=== PATIENT | male | born 1980 | race Caucasian/White ===

== ENCOUNTER 2017-08-20 09:22 | Emergency (ER) | payer MEDICAID, SELFPAY ==
[2017-08-20 09:23] VITALS: BP 144/82; PULSE 101; RESP 14; TEMP 37.1; O2SAT 98; BMI 22.3
--- NOTE | 2017-08-20 09:41 | ED.VISSUMM ---
- ER Visit Summary Date of Service: 08/20/17 Chief Complaint: Right flank pain History of Present Illness: The patient is a 37 M who has right flank pain. Started 4 days ago. He does have a history of kidney stones. Last one being 6 months ago. He did notice some hematuria this morning which is why he came in today. He does not currently have a urologist, however he has had lithotripsy in the past. He has been trying naproxen at home without any relief. He denies fevers. Physical Examination: Vital signs reviewed. HEENT exam unremarkable. Heart is regular rate and rhythm without murmurs. Lungs are clear to auscultation. Abdomen is soft with right flank tenderness to palpation. Extremities reveal no edema. Skin exam normal. Neurologic exam normal. Test Results: Urinalysis reveals blood Emergency Department Course and Treatment: Patient received IV Toradol and some fluids. He feels much better Treatment Plan: Patient likely has another kidney stone. He has had many in the past and I do not feel imaging is necessary at this time as he looks very comfortable and has a history of kidney stones. This is likely again another kidney stone. He will be treated with [place] at home. He will be given urology follow-up Disposition: Discharge Impression: Hematuria, likely kidney stone This note was generated with [employer] dictation software. It may contain incorrect words, spelling, and punctuation that were not noted in review of the chart prior to signing ED Disposition - Plan for ED Patient: Chief Complaint: Flank Pain Referrals: Care Physician,No Primary [Primary Care Provider] -
[2017-08-20] MEDS: Ketorolac 30 MG/ML Syringe IV (09:56)
[2017-08-20 10:07] LABS: Bacteria 0 SEEN /hpf (None Seen); Mucous, Urine 0 SEEN /hpf (<or=2+); Squamous Epithelial Cells - UA 0 SEEN /hpf (0-5); White Blood Cells 0 SEEN /hpf (0-5)
[2017-08-20 10:09] LABS: Color, Urine Yellow (Yellow); Glucose, Dipstick Normal (Normal); Ketone-Dipstick Negative (Negative); Leukocyte Esterase-Dipstick 25 /ul (Negative); Nitrite-Dipstick Negative (Negative); Occult Blood-Urine 250 /ul (Negative); Protein-Dipstick Negative (Negative); Specific Gravity, Urine 1.005 (1.002-1.030); Urine Bilirubin Dipstick Negative (Negative); Urine Clarity Clear (Clear); Urine Urobilinogen Normal (Normal)
[2017-08-20 10:14] LABS: Red Blood Cells-Urine > 100 SEEN /hpf (0-5)
--- NOTE | 2017-08-20 10:38 | ED.DEP ---
ED Disposition - Plan for ED Patient: Disposition: Home or Assisted Living Chief Complaint: Flank Pain Instructions: ED Stone Renal W Colic Prescriptions: Hydrocodone Bitart/Apap 5-325 [[place] 5/325] 1 - 2 tab PO Q6H PRN PRN 3 Days #12 tab PRN Reason: Pain Referrals: Care Physician,No Primary [Primary Care Provider] -
[2017-08-20 10:49] VITALS: BP 110/95; PULSE 70; RESP 15; O2SAT 100
== END 2017-08-20 10:50 | disposition home or self-care (01) ==
PROVIDERS: Emergency Provider Emergency Medicine
DX: R10.9 Unspecified abdominal pain (principal); R31.9 Hematuria, unspecified; K58.9 Irritable bowel syndrome, unspecified; Z72.0 Tobacco use; Z79.899 Other long term (current) drug therapy; Z87.442 Personal history of urinary calculi
CPT/HCPCS: 81001; 96374; 99283; J7050

== ENCOUNTER 2017-09-20 14:09 | Emergency (ER) | payer OTHER, MEDICAID, SELFPAY ==
[2017-09-20 14:10] VITALS: BP 118/87; PULSE 90; RESP 16; TEMP 36.6; O2SAT 98; BMI 22.2
[2017-09-20 15:01] VITALS: BP 132/74; PULSE 71; RESP 16; O2SAT 98
--- NOTE | 2017-09-20 15:05 | RAD_ITS ---
STUDY: X-RAY - LEFT HAND REASON FOR EXAM: Male, 37 years old. Pain and swelling. TECHNIQUE: 3 view(s) of the hand. COMPARISON: None. FINDINGS: Normal radiocarpal articulation. Normal distal radioulnar joint. Normal visualized carpal bones. Normal carpal articulations Normal carpometacarpal articulation of the thumb. Normal second through fifth carpometacarpal joints. Normal metacarpi. Normal metacarpophalangeal joint of the thumb. Normal interphalangeal joint of the thumb. Normal proximal and distal phalanges of the thumb. Normal metacarpophalangeal joints of the second through fifth fingers. Normal proximal and distal interphalangeal joints of the second through fifth fingers. Normal phalanges of the second through fifth fingers. Soft tissue swelling. RAD/Hand Min 3 Views IMPRESSION: Soft tissue swelling. Electronically Signed: Ubaldo Thompson MD at 15:38 EST Tel [phone], Service support ,
--- NOTE | 2017-09-20 15:55 | ED.VISSUMM ---
- ER Visit Summary Date of Service: 09/20/17 Chief Complaint: Left hand pain History of Present Illness: The patient is a 37 M presenting with left hand pain. Patient states he was at work last night. He states he grabbed a clamp and twisted. He felt a sharp pain in the on the back part of his left hand. He is left-handed. He complains of persistent pain. He tried Aleve at home. Denies other complaints. Physical Examination: Vitals are stable. Patient is afebrile. Alert no acute distress. HEENT exam is unremarkable. Neck is supple. Lungs are clear and equal bilaterally. Heart is regular rate and rhythm. Extremities left dorsal hand tenderness. Active full range of motion. Normal cap refill Skin is warm and dry. No focal neurologic deficit. Remainder of exam is unremarkable. Emergency Department Course and Treatment: X-ray of the left hand shows no acute process. Patient is advised to ice and elevate. He is given the number for corporate care for follow-up. Advised to return to ED if worsening complaints. Disposition: Discharge home Impression: Left hand strain This note was generated with [employer] dictation software. It may contain incorrect words, spelling, and punctuation that were not noted in review of the chart prior to signing ED Disposition - Plan for ED Patient: Chief Complaint: Upper Extremity Injury Referrals: Care Physician,No Primary [Primary Care Provider] -
--- NOTE | 2017-09-20 15:58 | ED.DEP ---
ED Disposition - Plan for ED Patient: Chief Complaint: Upper Extremity Injury Instructions: ED Sprain Hand Referrals: Care Physician,No Primary [[facility] Care Provider[facility] - [facility] [GROUP OF PHYSICIANS] -
--- NOTE | 2017-09-20 15:59 | DCINST.ED_ITS ---
ED Disposition - Plan for ED Patient: Chief Complaint: Upper Extremity Injury Instructions: ED Sprain Hand Referrals: Care Physician,No Primary [[facility] Care Provider[facility] [GROUP OF PHYSICIANS] -
[2017-09-20 16:07] VITALS: BP 137/68; PULSE 59; RESP 15; O2SAT 100
== END 2017-09-20 16:08 | disposition home or self-care (01) ==
PROVIDERS: Emergency Provider Emergency Medicine
DX: S66.912A Strain of unspecified muscle, fascia and tendon at wrist and hand level, left hand, initial encounter (principal); X50.1XXA Overexertion from prolonged static or awkward postures, initial encounter; Y93.9 Activity, unspecified; Y92.9 Unspecified place or not applicable; Y99.9 Unspecified external cause status; Z72.0 Tobacco use; Z79.899 Other long term (current) drug therapy
CPT/HCPCS: 73130; 99283

== ENCOUNTER 2017-10-05 15:42 | Emergency (ER) | payer MEDICAID, SELFPAY ==
[2017-10-05 15:43] VITALS: BP 148/93; PULSE 97; RESP 16; TEMP 36.1; O2SAT 96; BMI 21.7
[2017-10-05 16:03] LABS: Bacteria 0 SEEN /hpf (None Seen); White Blood Cells 0 SEEN /hpf (0-5)
[2017-10-05 16:06] LABS: Color, Urine Yellow (Yellow); Glucose, Dipstick Normal (Normal); Ketone-Dipstick Negative (Negative); Leukocyte Esterase-Dipstick Negative /ul (Negative); Nitrite-Dipstick Negative (Negative); Occult Blood-Urine 250 /ul (Negative); Protein-Dipstick 15 mg/dl (Negative); Specific Gravity, Urine 1.025 (1.002-1.030); Urine Bilirubin Dipstick Negative (Negative); Urine Clarity Clear (Clear); Urine Urobilinogen 1 mg/dl (Normal)
[2017-10-05 16:20] LABS: Red Blood Cells-Urine 5-10 SEEN /hpf (0-5)
[2017-10-05 16:21] LABS: Mucous, Urine 1+ /hpf (<or=2+); Squamous Epithelial Cells - UA 0-5 SEEN /hpf (0-5)
--- NOTE | 2017-10-05 16:53 | CT_ITS ---
STUDY: CT ABDOMEN AND PELVIS WITHOUT CONTRAST REASON FOR EXAM: Male, 37 years old. Right flank pain for one month. RADIATION DOSAGE (If Supplied By Facility): CTDIvol = ( 6.04 ) mGy, DLP = ( 289.93 ) mGycm TECHNIQUE: Transaxial images were obtained from the dome of the diaphragm to the symphysis pubis without oral contrast, and without intravenous contrast. Sagittal and coronal images were reconstructed. Individualized dose optimization techniques were used for this CT. COMPARISON: CT abdomen and pelvis June 13, 2016. FINDINGS: The visualized lung bases are unremarkable. The visualized portions of the heart are within normal limits. Normal liver. The portal vein diameter is approximately 1.4 cm. Normal gallbladder and extrahepatic biliary system. Normal spleen. Normal pancreas. Normal bilateral adrenal glands. Normal right kidney. Nonobstructing 1 mm stones again seen in the lower pole of the left kidney. No hydronephrosis. Normal visualized stomach. Normal small intestine. Normal colon. The appendix is visualized and appears normal. Normal abdominal aorta. Normal inferior vena cava. Normal retroperitoneum. There are nonspecific bilateral inguinal lymph nodes. Normal urinary bladder. Normal visualized prostate gland. Normal abdominal wall. Normal osseous structures. CT/Abdomen/Pelvis without Cont IMPRESSION: 1. 1 mm nonobstructing stones in the lower pole of the left kidney. No hydronephrosis. 2. The bowel is unremarkable without signs of obstruction. The visualized appendix is normal. 3. No new mass or fluid collection. 4. The seminal vesicles remain borderline prominent, with the prostate gland itself is normal in size without overt finding of prostatitis. Electronically Signed: Amrit Shaver MD at 18:03 EDT , Service support ,
[2017-10-05] MEDS: Ketorolac 30 MG/ML Syringe IV (17:25)
[2017-10-05] MEDS: 0.9% Normal Saline 1,000 ML 150 ML IV (17:25)
[2017-10-05 17:30] LABS: Absolute Lymphocyte Count 4.48 X10^3/ul (0.83-4.51); Absolute Neutrophil Count 7.7 X10^3/uL (2.0-7.7); Basophil# 0.03 X10^3/uL; Basophil% 0.2 % (0-1); Eosinophil# 0.03 X10^3/uL; Eosinophils% 0.2 % (0-5); Hematocrit 44.6 % (40-54); Hemoglobin 15.2 g/dl (13.0-16.5); Lymphocyte # 4.48 X10^3/ul (4.0); Mean Corp Hgb Conc 34.1 g/gl (32-36); Mean Corpuscular Volume 88.1 fL (80-94); Mean Platelet Vol. 9.6 fl (6.2-12.0); Monocyte# 0.94 X10^3/uL; Monocyte% 7.1 % (0-10); Neutrophil # 7.67 X10^3/uL (2.7-7.7); Neutrophil % 58.2 % (47-70); Platelet Count 244 K/mm3 (150-450); RBC Distribution Width CV 12.8 % (11.6-14.6); RBC Distribution Width SD 40.6 fl (35.1-43.9); Red Blood Count 5.06 M/mm3 (4.6-6.2); White Blood Count 13.2 K/mm3 (4.4-11.0)
[2017-10-05 17:39] LABS: POSITIVE COUNT NO; POSITIVE DIFFERENTIAL NO; POSITIVE MORPHOLOGY NO
[2017-10-05 17:41] LABS: Anion Gap 6 (5-15); BUN 24 mg/dL (7-18); Calcium,Total 8.7 mg/dL (8.5-10.1); Chloride 104 mmol/L (98-107); EST Glomerular Filtration Rate 90 mL/min (>60); Est Glom Filt Rate - Afr Amer 109 mL/min (>60); Estimated Creatinine Clearance 88.45 ml/min; Glucose 87 mg/dL (74-106); Potassium 3.6 mmol/L (3.5-5.1); Sodium Level 137 mmol/L (136-145)
--- NOTE | 2017-10-05 18:16 | ED.VISSUMM ---
- ER Visit Summary Date of Service: 10/05/17 Chief Complaint: Right-sided flank pain [] History of Present Illness: The patient is a 37 M [presents to the emergency department with right-sided flank pain it has been going on for about a month. Patient states this pain has been more severe over the last 2-3 days. Patient currently rates his pain as an 8 out of 10. Patient is concerned because he thinks he might have a kidney stone at stuck. Patient has had kidney stones in the past that required extraction. Patient does describe some urinary frequency. Patient denies any blood in his urine. Patient denies fever. Patient denies diarrhea however he has had some intermittent nausea and vomiting.] Physical Examination: HEENT-PERRLA, EOMI. Cranial nerves II through XII grossly intact. TMs clear. Mucous membranes moist. No adenopathy. Cardiovascular-regular rate and rhythm without murmur or ectopy Lungs-clear to auscultation, chest wall stable without crepitus or subcu emphysema Abdomen-normoactive bowel sounds, soft, mild right lower quadrant tenderness, no rebound or rigidity, no peritoneal signs. Patient has some mild right CVA tenderness. Extremities-intact ?4, normal range of motion, normal pulses, atraumatic[] Test Results: [CBC with differential shows slightly elevated white count of 13.2, hemoglobin 15, hematocrit 45, platelets 244. Chemistries unremarkable. Urinalysis showed 5-[address] flank showed a normal appendix and a small 1 mm stone in the lower pole of the left kidney otherwise nothing acute.] Emergency Department Course and Treatment: [Patient was medicated with Toradol in the emergency department.] Treatment Plan: [Patient will be given a prescription for [place] for pain.] Disposition: [Discharged to home in stable condition. Patient advised to follow-up with Dr. pro hammond within next 5-7 days.] Impression: [Right flank pain-etiology uncertain] This note was generated with [employer] dictation software. It may contain incorrect words, spelling, and punctuation that were not noted in review of the chart prior to signing ED Disposition - Plan for ED Patient: Chief Complaint: Flank Pain Referrals: Care Physician,No Primary [Primary Care Provider] -
--- NOTE | 2017-10-05 18:19 | ED.DCSUM_ITS ---
- ER Visit Summary Date of Service: 10/05/17 Chief Complaint: Right-sided flank pain [] History of Present Illness: The patient is a 37 M [presents to the emergency department with right-sided flank pain it has been going on for about a month. Patient states this pain has been more severe over the last 2-3 days. Patient currently rates his pain as an 8 out of 10. Patient is concerned because he thinks he might have a kidney stone at stuck. Patient has had kidney stones in the past that required extraction. Patient does describe some urinary frequency. Patient denies any blood in his urine. Patient denies fever. Patient denies diarrhea however he has had some intermittent nausea and vomiting.] Physical Examination: HEENT-PERRLA, EOMI. Cranial nerves II through XII grossly intact. TMs clear. Mucous membranes moist. No adenopathy. Cardiovascular-regular rate and rhythm without murmur or ectopy Lungs-clear to auscultation, chest wall stable without crepitus or subcu emphysema Abdomen-normoactive bowel sounds, soft, mild right lower quadrant tenderness, no rebound or rigidity, no peritoneal signs. Patient has some mild right CVA tenderness. Extremities-intact ?4, normal range of motion, normal pulses, atraumatic[] Test Results: [CBC with differential shows slightly elevated white count of 13.2 , hemoglobin 15, hematocrit 45, platelets 244. Chemistries unremarkable. Urinalysis showed 5-[address] flank showed a normal appendix and a small 1 mm stone in the lower pole of the left kidney otherwise nothing acute.] Emergency Department Course and Treatment: [Patient was medicated with Toradol in the emergency department.] Treatment Plan: [Patient will be given a prescription for [place] for pain.] Disposition: [Discharged to home in stable condition. Patient advised to follow -up with Dr. pro hammond within next 5-7 days.] Impression: [Right flank pain-etiology uncertain] This note was generated with [employer] dictation software. It may contain incorrect words, spelling, and punctuation that were not noted in review of the chart prior to signing ED Disposition - Plan for ED Patient: Chief Complaint: Flank Pain Referrals: Care Physician,No Primary [Primary Care Provider] -
--- NOTE | 2017-10-05 18:20 | DCINST.ED_ITS ---
ED Disposition - Plan for ED Patient: Chief Complaint: Flank Pain Instructions: ED Flank Pain Uncertain Cause Prescriptions: Hydrocodone Bitart/Apap 5-325 [[place] 5/325] 1 - 2 tab PO Q4H PRN PRN 3 Days #12 tab PRN Reason: Pain Referrals: Care Physician,No Primary [Primary Care Provider] - Ignacio Benavides MD [STAFF PHYSICIAN] - 5-7 Days
[2017-10-05 18:28] VITALS: PULSE 76; RESP 16; O2SAT 97
== END 2017-10-05 18:29 | disposition home or self-care (01) ==
PROVIDERS: Emergency Provider Emergency Medicine
DX: R10.9 Unspecified abdominal pain (principal); Z87.442 Personal history of urinary calculi; R11.2 Nausea with vomiting, unspecified; Z72.0 Tobacco use; R35.0 Frequency of micturition
CPT/HCPCS: 74176; 80048; 81001; 85025; 96361; 96374; 99283; J7030; A4216

== ENCOUNTER 2017-11-11 14:30 | Outpatient (RCR) | payer MEDICAID, SELFPAY ==
--- NOTE | 2017-10-06 11:50 | HP.PTEVAL_ITS ---
Patient's Visit Information DONIS CEVALLOS Jr. is a 37 year old M referred to Physical Therapy by KENNY Smiley.CMORRI with a diagnosis of Neck, Shoulder, Elbow pain. 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 Sudden cramp in his left hand and locked up pain shot up through the wrist. went away- woke up the next day and he had little to no use of his left hand. [facility]- was started on Prednisone and Muscle Relaxers- is done with Prednisone and is only takes the muscle relaxers when he is not working. Has a hard time grasping a pen and cramping. Has been on light duty- does not use his left hand at all. He is left hand dominate. Keeps the left hand wrapped with bandages at work. The constant pain has down since the beginning but it still there. Night is the worst- sleeps on the couch in a more sitting up position and keep his head above his head. The hand is going to sleep a lot. The numbness is from the shoulder to the hand. Does not have any neck pain but does report that he pops his neck a few times a day- doesn't feel like his left side pops as good as the right. Was seeing a chiropractor about a year ago. Feels the pain starts in the hand and moves its way up to the shoulder. The thumb is not involved- 2 middle fingers are the worst. Feels like his hand swells when its at work Worst: 10/10 Agg: anything that has to do with gripping anything, pulling socks/shoes on, grasp and tug. Best: 0/10 Eases: Asprin just took the endge off. X-rays of the wrist/hand which were negative but no imagine of the shoulder or neck. Normally a pretty active person. Has noticed tension MELGAR in the posterior neck, no blurred vision, dizziness. Sleep: disturbed. PMHx: Diverticulitis, kidney stones, Pins in the left knee Meds: None - Objective Posture: FH, RS, Increased kyphosis- can correct with verbal cues but does not maintain. Gait: no deviation noted. 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 Elbow: WNL, Wrist: WNL, Hand: WNL. Sensation: patient reported diminished on the left. Palpation: patient was senstive to gross touch throughout UE on the left from the scapula, upper trap, bicpital groove down the arm to the wrist. Strength: Scap: fair minus, Core: fair minus Shoulder: Right: 5/5 throughout Left: Flexion/Abd: 4-/5 with pain, IR/ER: 4+/5 with pain, Add/Extn: 4/5 with pain with pain. Elbow: 4/5 with pain, Wrist: 4-/ 5 with pain (flex/ext/sup/pro/radial dev/ulnar dev. 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 Special Test: PA glides of the cervical spine: no increased s/s, compression of the cervical spine: increased pain in the shoulder, Distraction: no change in s/s - Goals Goal 1:: Patient will be I with HEP and progression Goal Time Frame: 4-6 Weeks Goal 2:: Patient will maintain proper posture t/o tx session to demo increased scap s/s Goal Time Frame: 4-6 Weeks Goal 3:: Patient will demo 4+/5 strength in left UE Goal Time Frame: 4-6 Weeks Goal 4:: Patient will report 0/10 pain for 1 week in the left UE Goal Time Frame: 4-6 Weeks - Rehabilitation Potential Physical Therapy Diagnosis: Patient presents with hypomobility- he has decreased strength and muscular endurance leading to abnormal posture and increased pain Rehabilitation Potential: Fair - Anticipated Interventions Patient/Client Instruction: Educate patient on: Benefits of Fitness Program For the Purpose of:: To increase tolerance to activity/condition/position Therapeutic Exercise to Include: Strength training, Endurance training, Coordination, Body mechanics, Postural training, Dynamic Lumbar Stabilization, Scapular Strength/Stabilization For the Purpose of:: To improve muscle performance and motor function TENS: Yes Cryotherapy (ice pack, ice massage): Yes Thermo therapy (hot pack): Yes Ultrasound (thermal/non thermal): Yes For the Purpose of:: To decrease pain Thank you for the opportunity to evaluate your patient. For Medicare and Medicare HMO plans, please review the plan of care and approve it. It will need to be FAXED BACK to us at [phone] for Medicare purposes. Please let me know if there are questions or concerns regarding this plan of care. Physician Signature: Date:
--- NOTE | 2017-11-11 14:56 | HP.PTDCSUM ---
HP - PT D/C Summary It has been my pleasure to treat DONIS CEVALLOS . under orders from KENNY Smiley, for the diagnosis of Neck, Shoulder, Elbow pain for a total of 12 visit(s). Discharge Date: Please see the following information for a summary of their discharge status. - Subjective Subjective: Patient reports feeling pretty good. Started working with his hand starting Wednesday- current restrictions no lifting/pushing/pulling over 10 lbs or repetitive with the left hand. 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 Still has a little bit of problem with the pinky ex: taking off lids. No pain in the arm or neck area. No N/T in the fingers even when he is sleeping. Sleep is not disturbed. Patient feels that he is 75% better. Goes back to the MD on the . Does equiptment at home that he has been using. - Pain left hand Pain Intensity (Out of 10): 0 - Objective Objective/Function: Posture: good throughout Gait: no deviation noted. ROM: Cervical WNL Shoulder:WNL. Elbow: WNL, Wrist: WNL, Hand: WNL. Sensation: WNL. Palpation: not tender. Strength: Scap: fair plus, Core: fair plus Shoulder: Right: 5/5 throughout Left: Flexion/Abd: 5/5, IR/ER: 5/5, Add/Extn: 5/5. Elbow: 5/5, Wrist: 5/5 (flex/ext/sup/pro/radial dev/ulnar dev). 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 - Goals Goal 1:: Patient will be I with HEP and progression Goal Progress: Goal Met Goal 2:: Patient will maintain proper posture t/o tx session to demo increased scap s/s Goal Progress: Goal Met Goal 3:: Patient will demo 4+/5 strength in left UE Goal Progress: Goal Met Goal 4:: Patient will report 0/10 pain for 1 week in the left UE Goal Progress: Goal Met - Plan Plan: Discharge to I HEP - D/C Information If there are questions or concerns regarding this patient's physical therapy, please feel free to call me at [phone]. Thank you for the referral of this patient. Sincerely, Leanne Herrera
== END 2017-11-11 16:12 | disposition home or self-care (01) ==
LOC: PT 14:30
PROVIDERS: Visit Provider Physician Assistant Surgical
DX: M77.12 Lateral epicondylitis, left elbow (principal); M54.12 Radiculopathy, cervical region; S16.1XXD Strain of muscle, fascia and tendon at neck level, subsequent encounter
CPT/HCPCS: 97014; 97110; 97162; 97164; G0283

== ENCOUNTER 2018-01-28 13:03 | Emergency (ER) | payer MEDICAID, SELFPAY ==
[2018-01-28 13:04] VITALS: BP 125/76; PULSE 74; RESP 16; TEMP 36.4; O2SAT 98; BMI 21.7
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
--- NOTE | 2018-01-28 13:42 | ED.DEP ---
ED Disposition - Plan for ED Patient: Disposition: Home or Assisted Living Chief Complaint: Chest Other Instructions: ED Strain Chest Wall Referrals: Zeb Baez MD [STAFF PHYSICIAN] - 1 Week if not improving Additional Instructions: Ice to chest wall to decrease pain and inflammation along with Motrin for pain. This should progressively get better if not improving evident further evaluated. At this time on your x-ray there are no signs of any broken ribs or other bony abnormalities.
[2018-01-28 13:46] VITALS: BP 118/75; PULSE 72; RESP 14; O2SAT 99
== END 2018-01-28 13:48 | disposition home or self-care (01) ==
LOC: ED 13:46
PROVIDERS: Emergency Provider Emergency Medicine
DX: S29.012A Strain of muscle and tendon of back wall of thorax, initial encounter (principal); S20.212A Contusion of left front wall of thorax, initial encounter; S80.212A Abrasion, left knee, initial encounter; S80.211A Abrasion, right knee, initial encounter; Y04.0XXA Assault by unarmed brawl or fight, initial encounter; Y93.9 Activity, unspecified; Y92.9 Unspecified place or not applicable; Y99.9 Unspecified external cause status; Z87.442 Personal history of urinary calculi; Z72.0 Tobacco use
CPT/HCPCS: 71046; 99283

== ENCOUNTER 2018-07-21 17:37 | Emergency (ER) | payer SELFPAY ==
[2018-07-21 17:37] VITALS: BMI 22.3
[2018-07-21 17:38] VITALS: BP 121/68; PULSE 65; RESP 16; TEMP 36.5; O2SAT 98; BMI 25.0
[2018-07-21 17:43] VITALS: BP 121/68; PULSE 65; RESP 16; TEMP 36.5; O2SAT 98
--- NOTE | 2018-07-21 17:57 | ED.VISSUMM ---
- ER Visit Summary Date of Service: 07/21/18 Chief Complaint: Dental pain History of Present Illness: The patient is a 37 M with right upper dental pain that has been getting worse since yesterday. Patient states he broke a tooth off 2 days ago. Patient admits to some subjective chills but denies any fevers. Patient admits to some swelling. Patient states he took an antibiotic that he had leftover from a prior infection and the swelling has improved. Patient admits to hot and cold sensitivity. Patient states he does have a dentist that he will follow-up with. Physical Examination: Vital signs are stable. Patient is afebrile. Patient is in no acute distress. Oral mucosa is pink and moist. Oropharynx is clear. There are multiple dental caries noted. There is tenderness over the right upper premolars and molars. There is some mild gingival edema. There is no definite abscess. Neck is supple. Trachea is midline. There is no JVD or lymphadenopathy noted. There is no sublingual edema noted. Heart was regular rate and rhythm. Lungs are clear and equal bilaterally. The remaining physical exam is within normal limits. Emergency Department Course and Treatment: Patient was given a prescription for Pen-Vee K. Patient was instructed to follow-up with his dentist as scheduled. Patient understood and was agreeable with the plan. All questions were answered. Disposition: Discharged home Impression: Infected dental caries This note was generated with [employer] dictation software. It may contain incorrect words, spelling, and punctuation that were not noted in review of the chart prior to signing ED Disposition - Plan for ED Patient: Disposition: Home or Assisted Living Chief Complaint: Dental Diagnosis: Infected dental caries Instructions: ED Tooth Pain, ED Cavity Dental Prescriptions: Penicillin V Potassium 500 mg PO 4X/DAY #40 tab Referrals: Care Physician,No Primary [Primary Care Provider] -
== END 2018-07-21 18:17 | disposition home or self-care (01) ==
LOC: ED 18:11
PROVIDERS: Emergency Provider Emergency Medicine
DX: K04.7 Periapical abscess without sinus (principal); K02.9 Dental caries, unspecified; R51 Headache; R11.0 Nausea; Z72.0 Tobacco use
CPT/HCPCS: 99282

== ENCOUNTER 2018-08-28 21:29 | Emergency (ER) | payer SELFPAY ==
[2018-08-28 21:35] VITALS: BP 122/89; PULSE 79; RESP 16; TEMP 36.7; O2SAT 100; BMI 24.2
--- NOTE | 2018-08-28 22:09 | CT_ITS ---
HISTORY: ABD PAIN TECHNIQUE: Helically acquired images were obtained of the abdomen and pelvis following 100 cc Isovue-300 IV contrast. No oral contrast was administered. A radiation dose optimization technique was used for this scan. COMPARISON: 10/05/17 CT abdomen and pelvis. FINDINGS: # of images incl. paperwork: 364 Mild wall thickening of the gastric antrum which is not well distended. Normal appendix. No obstruction or inflammation of the remainder of the bowel. No free fluid or free air. Liver, gallbladder, pancreas, spleen, adrenal glands, kidneys, urinary bladder with no acute or concerning findings. Punctate nonobstructing stone upper pole right kidney. Osseous structures and lung bases within normal limits. Patent mesenteric and portal veins. Normal caliber abdominal aorta. CT/Abdomen/Pelvis W IV Cont ONLY IMPRESSION: Mild wall thickening of the gastric antrum may be due to gastritis with underlying peptic ulcer disease not excluded. This might also be due to underdistention. No other etiology for abdominal pain identified. Individualized dose optimization techniques were used for this CT. at 0014 Reported and signed by: Avel Oakley MD Electronically Signed: Avel Oakley, at 0:13 EST Tel , Service support ,
[2018-08-28] MEDS: Ondansetron 4 MG/2 ML Vial IV (22:16)
[2018-08-28] MEDS: 0.9% Normal Saline 1,000 ML 1000 ML IV (22:16)
[2018-08-28] MEDS: Morphine 4 MG/ML Syringe IV (22:18)
[2018-08-28 22:20] LABS: Absolute Lymphocyte Count 3.56 X10^3/ul (0.83-4.51); Absolute Neutrophil Count 8.7 X10^3/uL (2.0-7.7); Basophil# 0.02 X10^3/uL; Basophil% 0.2 % (0-1); Eosinophil# 0.03 X10^3/uL; Eosinophils% 0.2 % (0-5); Hematocrit 47.7 % (40-54); Lymphocyte # 3.56 X10^3/ul (4.0); Lymphocyte % 27.3 % (19-41); Mean Corp Hgb Conc 33.5 g/gl (32-36); Mean Corpuscular Hgb 29.7 pg (27.0-32.0); Mean Corpuscular Volume 88.5 fL (80-94); Mean Platelet Vol. 10.4 fl (6.2-12.0); Monocyte% 5.4 % (0-10); Neutrophil # 8.71 X10^3/uL (2.7-7.7); Neutrophil % 66.7 % (47-70); POSITIVE COUNT NO; POSITIVE DIFFERENTIAL NO; POSITIVE MORPHOLOGY NO; Platelet Count 235 K/mm3 (150-450); RBC Distribution Width CV 12.8 % (11.6-14.6); RBC Distribution Width SD 40.7 fl (35.1-43.9); Red Blood Count 5.39 M/mm3 (4.6-6.2)
[2018-08-28 22:30] LABS: ALB/GLOB Ratio 1.1 RATIO (0.9-2.4); AST(SGOT) 20 U/L (15-37); Alanine Aminotransfer ALT/SGPT 25 U/L (16-61); Albumin, Serum 4.2 g/dL (3.2-5.0); Alkaline Phosphatase 95 U/L (45-117); Anion Gap 7 (5-15); BUN 8 mg/dL (7-18); BUN/Creat Ratio 8.4 RATIO (10-20); Calcium,Total 8.6 mg/dL (8.5-10.1); Chloride 105 mmol/L (98-107); Creatinine, Serum 0.95 mg/dL (0.70-1.30); EST Glomerular Filtration Rate 95 mL/min (>60); Est Glom Filt Rate - Afr Amer 115 mL/min (>60); Estimated Creatinine Clearance 96.07 ml/min; Globulin 3.7 g/dL (2.2-4.2); Glucose 58 mg/dL (74-106); Lipase 323 U/L (73-393); Potassium 3.5 mmol/L (3.5-5.1); Protein, Total 7.9 g/dL (6.4-8.2); Sodium Level 141 mmol/L (136-145)
[2018-08-28 22:31] VITALS: BP 110/79; PULSE 60; RESP 14; O2SAT 98
--- NOTE | 2018-08-28 22:50 | EKG12_ITS ---
Test Reason : CP Blood Pressure : / mmHG Vent. Rate : 065 BPM Atrial Rate : 065 BPM P-R Int : 144 ms QRS Dur : 082 ms QT Int : 396 ms P-R-T Axes : 060 047 057 degrees QTc Int : 411 ms Normal sinus rhythm Normal ECG Confirmed by ISABELLA CORCORAN, VIRGIL ([id number]), movie editor PAULINE LOVING ([id number]) on 09/02/2018 8:53:12 AM Referred By: DR ALCALA Confirmed By:VIRGIL MASON MD
[2018-08-28] MEDS: Dextrose 50%-Water 25 GM/50 ML DISP.SYRIN IV (23:41)
[2018-08-28 23:44] VITALS: BP 99/76; PULSE 56; RESP 14; O2SAT 97
[2018-08-29 00:16] VITALS: BP 107/74; PULSE 58; RESP 16; O2SAT 99
--- NOTE | 2018-08-29 00:25 | ED.VISSUMM ---
- ER Visit Summary Date of Service: 08/29/18 Chief Complaint: Abdominal pain History of Present Illness: The patient is a 38 M with epigastric abdominal pain that has been increasing over the past week. It is a stabbing pain and sometimes radiates to his chest. Associated with nausea and vomiting. Patient has a history of diverticulitis and ulcerative colitis. Denies any history of liver disease, pancreatitis, or peptic ulcer. Physical Examination: Afebrile and vital signs unremarkable. Alert and oriented. No acute distress. Heart regular rate and rhythm. Lungs clear. Abdomen is tender in the epigastric area. No guarding or rebound. Skin appears normal in color. No jaundice or pallor. Test Results: EKG showed sinus rhythm at a rate of 65. Troponin normal. CBC showed a white count of 13, glucose 58, hepatic panel and lipase normal. CT showed gastric thickening which may be concerning for peptic ulcer. Emergency Department Course and Treatment: Patient was treated with fluids, morphine, Zofran, and dextrose. Symptoms and exam were concerning for peptic ulcer. CT was also concerning. Otherwise his workup was fairly unremarkable. I have low suspicion for cardiac, aortic, or PE issues. No further testing or evaluation was indicated for these etiologies. Patient will need outpatient follow-up. He does not have a current GI doctor or surgeon. I will refer him to Dr. Goodwin who is on-call. He should call for follow-up tomorrow. He was given a prescription for a PPI. Continue his other medications. Return right away for any new or worsening issues. Treatment Plan: As above Disposition: Discharge Impression: 1. Peptic ulcer suspected This note was generated with [employer] dictation software. It may contain incorrect words, spelling, and punctuation that were not noted in review of the chart prior to signing ED Disposition - Plan for ED Patient: Referrals: Care Physician,No Primary [Primary Care Provider] -
--- NOTE | 2018-08-29 00:28 | ED.DCSUM_ITS ---
- ER Visit Summary Date of Service: 08/29/18 Chief Complaint: Abdominal pain History of Present Illness: The patient is a 38 M with epigastric abdominal pain that has been increasing over the past week. It is a stabbing pain and sometimes radiates to his chest. Associated with nausea and vomiting. Patient has a history of diverticulitis and ulcerative colitis. Denies any history of liver disease, pancreatitis, or peptic ulcer. Physical Examination: Afebrile and vital signs unremarkable. Alert and oriented. No acute distress. Heart regular rate and rhythm. Lungs clear. Abdomen is tender in the epigastric area. No guarding or rebound. Skin appears normal in color. No jaundice or pallor. Test Results: EKG showed sinus rhythm at a rate of 65. Troponin normal. CBC showed a white count of 13, glucose 58, hepatic panel and lipase normal. CT rod wed gastric thickening which may be concerning for peptic ulcer. Emergency Department Course and Treatment: Patient was treated with fluids, morphine, Zofran, and dextrose. Symptoms and exam were concerning for peptic ulcer. CT was also concerning. Otherwise his workup was fairly unremarkable. I have low suspicion for cardiac, aortic, or PE issues. No further testing or evaluation was indicated for these etiologies. Patient will need outpatient follow-up. He does not have a current GI doctor or surgeon. I will refer him to Dr. Goodwin who is on-call. He should call for follow-up tomorrow. He was given a prescription for a PPI. Continue his other medications. Return right away for any new or worsening issues. Treatment Plan: As above Disposition: Discharge Impression: 1. Peptic ulcer suspected This note was generated with [employer] dictation software. It may contain incorrect words, spelling, and punctuation that were not noted in review of the chart prior to signing ED Disposition - Plan for ED Patient: Referrals: Care Physician,No Primary [Primary Care Provider] -
--- NOTE | 2018-08-29 00:28 | ED.DEP ---
ED Disposition - Plan for ED Patient: Instructions: Peptic Ulcer Prescriptions: Omeprazole [Prilosec] 20 mg PO BID #60 cap Referrals: Norbert West MD [STAFF PHYSICIAN] -
--- NOTE | 2018-08-29 00:37 | ED.RN ---
SANDWICH, ORANGE JUICE, COOKIES AND PEANUT BUTTER GIVEN
[2018-08-29 00:41] LABS: Bedside Glucose 68 mg/dL (70-110)
[2018-08-29 01:11] LABS: Bedside Glucose 83 mg/dL (70-110)
[2018-08-29 01:22] VITALS: BP 119/84; PULSE 60; RESP 16; O2SAT 99
== END 2018-08-29 01:22 | disposition home or self-care (01) ==
PROVIDERS: Emergency Provider Emergency Medicine
DX: K27.9 Peptic ulcer, site unspecified, unspecified as acute or chronic, without hemorrhage or perforation (principal); R11.2 Nausea with vomiting, unspecified; K58.9 Irritable bowel syndrome, unspecified; Z72.0 Tobacco use; Z87.19 Personal history of other diseases of the digestive system; Z87.442 Personal history of urinary calculi
CPT/HCPCS: 74177; 80053; 82962; 83690; 84484; 85025; 93005; 96361; 96374; 96375; 99283; J7030; Q9967; A4216; J2405

== ENCOUNTER 2018-09-29 00:59 | Emergency (ER) | payer SELFPAY ==
[2018-09-29 01:03] VITALS: BP 111/70; PULSE 68; RESP 17; TEMP 36.6; O2SAT 96; BMI 23.3
--- NOTE | 2018-09-29 01:26 | RAD_ITS ---
STUDY: X-RAY CHEST REASON FOR EXAM: Male, 38 years old. Confusion TECHNIQUE: PA and lateral COMPARISON: January 28, 2018 FINDINGS: The lungs are clear and expanded. There is no demonstrated pleural abnormality. Normal size heart. Normal mediastinum and jimenez. Normal visualized pulmonary arteries. Normal visualized aortic arch and descending thoracic aorta. Normal visualized thoracic spine. Normal visualized ribs, clavicles, and shoulders. There is no demonstrated abnormality of the visualized soft tissue structures of the upper abdomen. RAD/Chest PA and Lateral IMPRESSION: Normal x-ray examination of the chest. Electronically Signed: Valentino Tellez MD at 3:25 EDT , Service support ,
--- NOTE | 2018-09-29 01:26 | EKG12_ITS ---
Test Reason : WEAKNESS/DIZZINESS Blood Pressure : / mmHG Vent. Rate : 057 BPM Atrial Rate : 057 BPM P-R Int : 162 ms QRS Dur : 084 ms QT Int : 430 ms P-R-T Axes : 058 063 040 degrees QTc Int : 418 ms Sinus bradycardia Otherwise normal ECG Confirmed by ISABELLA CORCORAN, VIRGIL ([id number]), content editor PAULINE LOVING ([id number]) on 09/30/2018 8:27:04 AM Referred By: ISAMAR Confirmed By:VIRGIL MASON MD
[2018-09-29 01:27] VITALS: BP 106/76; PULSE 64; RESP 14; O2SAT 95
[2018-09-29 01:28] VITALS: O2SAT 95
[2018-09-29 01:36] LABS: Absolute Lymphocyte Count 2.74 X10^3/ul (0.83-4.51); Absolute Neutrophil Count 4.9 X10^3/uL (2.0-7.7); Basophil# 0.03 X10^3/uL; Basophil% 0.4 % (0-1); Eosinophil# 0.13 X10^3/uL; Eosinophils% 1.5 % (0-5); Hematocrit 42.2 % (40-54); Hemoglobin 14.5 g/dl (13.0-16.5); Lymphocyte # 2.74 X10^3/ul (4.0); Lymphocyte % 32.4 % (19-41); Mean Corp Hgb Conc 34.4 g/gl (32-36); Mean Corpuscular Hgb 29.7 pg (27.0-32.0); Mean Corpuscular Volume 86.3 fL (80-94); Monocyte# 0.62 X10^3/uL; Monocyte% 7.3 % (0-10); Neutrophil # 4.92 X10^3/uL (2.7-7.7); Neutrophil % 58.3 % (47-70); Platelet Count 199 K/mm3 (150-450); RBC Distribution Width CV 12.9 % (11.6-14.6); RBC Distribution Width SD 40.3 fl (35.1-43.9); Red Blood Count 4.89 M/mm3 (4.6-6.2); White Blood Count 8.5 K/mm3 (4.4-11.0)
[2018-09-29 01:36] LABS: Bedside Glucose 115 mg/dL (70-110)
[2018-09-29 01:38] LABS: POSITIVE COUNT NO; POSITIVE DIFFERENTIAL NO; POSITIVE MORPHOLOGY NO
[2018-09-29 01:43] LABS: International Normalized Ratio 1.1; Prothrombin Time (Protime)PT. 14.1 SECONDS (11.7-14.9)
[2018-09-29 01:44] LABS: Partial Thromboplast Time 30.6 Seconds (24.1-36.2)
[2018-09-29 01:47] LABS: Anion Gap 5 (5-15); BUN 14 mg/dL (7-18); BUN/Creat Ratio 15.6 RATIO (10-20); Calcium,Total 8.3 mg/dL (8.5-10.1); Chloride 107 mmol/L (98-107); EST Glomerular Filtration Rate 101 mL/min (>60); Est Glom Filt Rate - Afr Amer 123 mL/min (>60); Estimated Creatinine Clearance 101.41 ml/min; Glucose 106 mg/dL (74-106); Potassium 3.7 mmol/L (3.5-5.1); Sodium Level 137 mmol/L (136-145)
[2018-09-29 03:00] VITALS: BP 107/72; PULSE 56; RESP 12; O2SAT 98
[2018-09-29 03:10] LABS: D-Dimer Quantitative (DVT/PE) 0.27 FEU/ug/m (0.27-0.49)
--- NOTE | 2018-09-29 03:34 | ED.VISSUMM ---
- ER Visit Summary Date of Service: 09/29/18 Chief Complaint: Dizziness History of Present Illness: The patient is a 38 M who presents with dizziness. It began today while at work. He also developed pain under his left armpit which was sharp. His dizziness is described as near syncope. No recent travel or surgery. No history of DVT or pulmonary embolism. He is not short of breath. No recent illness. No fevers cough congestion sore throat vomiting diarrhea. Physical Examination: Afebrile vitals normal Patient was sleeping comfortably when I entered the room. He was easily arousable. Heart regular rate and rhythm Lungs clear he does have a left-sided chest wall tenderness Abdomen soft Alert No rash Test Results: EKG shows sinus rhythm at a rate of 57. Two-view chest x-ray normal. CBC BMP INR normal. Troponin negative. D-dimer negative. Emergency Department Course and Treatment: Workup as above is normal. Patient's dizziness is significantly improved. His chest pain appears to be reproducible and is likely musculoskeletal in nature. He was given a referral to follow-up with her primary care physicians should symptoms not improved. He understands to return for new or worsening symptoms. He was discharged. Treatment Plan: [] Disposition: Discharge Impression: Chest pain This note was generated with [employer] dictation software. It may contain incorrect words, spelling, and punctuation that were not noted in review of the chart prior to signing ED Disposition - Plan for ED Patient: Referrals: Care Physician,No Primary [Primary Care Provider] -
--- NOTE | 2018-09-29 03:35 | ED.DEP ---
ED Disposition - Plan for ED Patient: Instructions: ED Dizziness UKO, ED Chest Pain Atypical Unkn Cause Referrals: Care Physician,No Primary [Primary Care Provider] - Brad Veras DO [NON CLINICAL AFFILIATE] -
[2018-09-29 03:42] VITALS: BP 100/82; PULSE 56; RESP 19; O2SAT 94
== END 2018-09-29 03:42 | disposition home or self-care (01) ==
PROVIDERS: Emergency Provider Emergency Medicine
DX: R07.9 Chest pain, unspecified (principal); R42 Dizziness and giddiness
CPT/HCPCS: 71046; 80048; 82962; 84484; 85025; 85379; 85610; 85730; 93005; 99284; J7030; A4216

== ENCOUNTER 2019-03-17 11:38 | Emergency (ER) | payer MEDICAID, SELFPAY ==
[2019-03-17 11:39] VITALS: BP 131/84; PULSE 83; RESP 17; TEMP 36.2; O2SAT 98; BMI 22.6
--- NOTE | 2019-03-17 11:57 | ED.DCSUM_ITS ---
- ER Visit Summary Date of Service: 03/17/19 Chief Complaint: Back pain History of Present Illness: The patient is a 38 M who has had back pain for the past 5 days. 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 It is in the middle part of his back and radiates upward and downward. Is worse with movement. He denies numbness or tingling in his arms or legs. No bowel or bladder incontinence. He tried Motrin at home without any relief. Physical Examination: Vital signs reviewed. Back exam reveals tenderness in the thoracic paraspinal regions. He does have a muscular tension not on the left- hand side. His neurologic exam including reflexes is normal Test Results: None performed Emergency Department Course and Treatment: Patient has no bony tenderness so I do not feel x-rays are necessary at this time. I will treat him with Norflex and Toradol. He will go home with naproxen and Flexeril. He will follow-up with his PCP Treatment Plan: [] Disposition: Discharge Impression: Thoracic strain This note was generated with [employer] dictation software. It may contain incorrect words, spelling, and punctuation that were not noted in review of the chart prior to signing ED Disposition - Plan for ED Patient: Referrals: Care Physician,No Primary [Primary Care Provider] -
--- NOTE | 2019-03-17 11:59 | ED.DEP ---
ED Disposition - Plan for ED Patient: Disposition: Home or Assisted Living Instructions: Back Sprain/Strain Prescriptions: cycloBENZAPRine HCl [Flexeril] 10 mg PO TID PRN #20 tab PRN Reason: Muscle Spasm Prescription Printed Naproxen [Naprosyn] 500 mg PO BID PRN #20 tab Prescription Printed Referrals: Care Physician,No Primary [Primary Care Provider] -
[2019-03-17] MEDS: Ketorolac 60 MG/2 ML Vial IM (12:00)
[2019-03-17] MEDS: Orphenadrine 60 MG/2 ML Ampul IM (12:00)
--- NOTE | 2019-03-17 12:10 | CM.ED ---
Social Work Consult: No PCP Informant: Self Referral Collaborating with Dr. Escobar. Dr. Escobar recommending for patient to follow up with PCP after ED visit. Dr. Escobar updated that patient does not have a current PCP. Met with patient in room. This social science teacher introduced self as well as social science teacher role. Patient agreeable to meeting with this social science teacher. 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 This social science teacher and patient able to engage in conversation about reason to have PCP to follow patient for continuity of care. Patient voicing understanding and open to this social science teacher providing patient with list of PCP's in the area. Patient is not open to this social science teacher setting up PCP appointment. Patient voicing no further needs. All questions answered. List of PCP's provided to patient, patient encouraged to contact a PCP to set up appointment. Med ZEPEDA, ELIZABETH
== END 2019-03-17 12:28 | disposition home or self-care (01) ==
PROVIDERS: Emergency Provider Emergency Medicine
DX: S29.012A Strain of muscle and tendon of back wall of thorax, initial encounter (principal); X50.0XXA Overexertion from strenuous movement or load, initial encounter; Y93.89 Activity, other specified; Y92.9 Unspecified place or not applicable; Y99.9 Unspecified external cause status; Z72.0 Tobacco use
CPT/HCPCS: 96372; 99282

== ENCOUNTER 2019-04-24 12:10 | Emergency (ER) | payer MEDICAID, SELFPAY ==
[2019-04-24 12:11] VITALS: BP 142/116; PULSE 125; RESP 17; TEMP 36.3; O2SAT 98; BMI 21.7
--- NOTE | 2019-04-24 12:43 | ED.VIS.GEN ---
History of Present Illness Chief Complaint: Back Informant: Patient Onset: Days Context: Gradual Onset Timing: Continuous Current Severity: Moderate Maximum Severity: Severe Narrative: Patient is a 38-year-old male with history of chronic neck and back pain resenting with worsening left neck and shoulder pain. Patient states is been worsening over the past 3 days but this is been ongoing for over a year. HAs previously seen a chiropractor. He was seen in the ER for a similar complaint about a month ago where he was prescribed Flexeril. Patient states he had a hard time finding some to follow-up with because he has care source. He notes that he does a lot of physical activity which worsens his symptoms. The pain is a sharpness and his neck and shoulder area. It does not radiate. He notes that the past 2 days he is also had tingling in his hand diffusely and some paresthesias over the palm of his hand diffusely. These seem to be worse when he moves his neck or shoulder. He denies any weakness of his hand. Patient had a prescription for Flexeril but states he did not take it very much because it made him sleepy. He was told to take Naprosyn was also stopped taking that because he ran out. He denies any new symptoms. He denies any other complaints at this time. 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 Past Medical History - Allergies and Home Meds Allergies/Adverse Reactions: Allergies cyproheptadine HCl [From Periactin] Adverse Reaction (Verified 04/24/19 12:10) Nausea Primary Care Physician: Care Physician,No Primary [Primary Care Provider] - Surgical History: noncontributory Lives: Spouse/ Significant Other Smoking Status: Current every day smoker Review of Systems All systems negative except as indicated Musculoskeletal: Reports: Neck pain, - - left shoulder pain Physical Exam Vital Signs/Narrative: Vital Signs Temp Pulse Resp BP Pulse Ox 04/24/19 12:11 97.3 F L 125 H 17 142/116 H 98 Inital Vital Signs reviewed: Yes General: Well nourished, Well developed, No Acute Distress Head: Normocephalic, Atraumatic Eyes: Perrl, EOMI ENT: Moist mucous membranes, No rhinorrhea, - - Dentition poor Neck: Supple, - - No range of motion, no midline tenderness, left paraspinal tenderness to palpation Cardiovascular: Regular rate, Regular rhythm, No murmurs Respiratory: No distress, CTA bilaterally, Chest nontender Abdomen: Soft, Nontender, Nondistended, Normal bowel sounds Back: Normal Inspection, - - Left cervical paraspinal tenderness to palpation, tenderness to palpation and spasm of the left trapezius. Negative for: Spinal tenderness Extremities: Nontender, No edema. Negative for: Tenderness Skin: Normal color, No rash Neurological: Alert, Oriented x3, Cranial nerves II-XII grossly intact, Normal Strength, Normal Sensation, - - Normal strength of the intrinsic muscles of the hand Psychological: Normal affect, Normal Mood Diagnostic/Tx/Re-eval - Medical Decision Making Patient is evaluated for neck pain. He is nontoxic in no acute distress. He has normal vital signs. He does not have midline tenderness. He has a normal neurologic exam. He does claim some subjective paresthesias but his sensation is intact light touch on the palm of his hand. I suspect patient is having muscle spasms of his trapezius which is causing his symptoms. Patient will be restarted on Flexeril and Naprosyn. He is given a dose of IM Toradol and Valium p.o. in the emergency room. He is counseled that he needs to follow-up with her primary care doctor. He is encouraged to follow-up with the chiropractor he is seen in the past as he felt that that helped before. Patient is also counseled that he needs to rest if he wants to heal out. He is encouraged to drink plenty of water. Patient is counseled on signs and symptoms requiring return to the emergency room. Patient verbalizes agreement and understand this plan. Patient discharged home in stable and improved condition. ED Disposition - Plan for ED Patient: Disposition: Home or Assisted Living Diagnosis: Trapezius muscle spasm Instructions: BACK SPASM, No Trauma, BACK AND NECK PAIN, General Prescriptions: cycloBENZAPRine HCl [Flexeril] 10 mg PO TID PRN #20 tab PRN Reason: Muscle Spasm Prescription Printed Naproxen [Naprosyn] 500 mg PO BID PRN #20 tab Prescription Printed Referrals: Care Physician,No Primary [Primary Care Provider] - Additional Instructions: Drink plenty of water. Follow-up with your chiropractor. Take medications as prescribed. You may attempt to cut the Flexeril in half if you feel that it is too strong to take a full 10 mg tablet. Allow yourself to rest to heal.
[2019-04-24] MEDS: Ketorolac 15 MG/ML Vial IM (13:09)
[2019-04-24] MEDS: diazePAM 5 MG Tablet PO (13:09)
[2019-04-24 13:15] VITALS: BP 112/94; PULSE 81; RESP 16; O2SAT 100
== END 2019-04-24 13:36 | disposition home or self-care (01) ==
PROVIDERS: Emergency Provider Emergency Medicine
DX: M62.830 Muscle spasm of back (principal); M54.2 Cervicalgia; M54.9 Dorsalgia, unspecified; R20.2 Paresthesia of skin; F17.200 Nicotine dependence, unspecified, uncomplicated
CPT/HCPCS: 96372; 99283

== ENCOUNTER 2019-05-28 09:35 | Emergency (ER) | payer MEDICAID, SELFPAY ==
[2019-05-28 09:35] VITALS: BP 121/80; PULSE 104; RESP 16; TEMP 36.9; O2SAT 97; BMI 21.7
--- NOTE | 2019-05-28 09:52 | ED.DCSUM_ITS ---
- ER Visit Summary Date of Service: 05/28/19 Chief Complaint: Itching History of Present Illness: The patient is a 38 M Who states that something crawled up his pants last night and bit him and he is now itching diffusely. He states that he was at family members house who put some new pet powder down on the carpeting. He also notes that they have new carpeting and pains. His dogs are currently being treated for fleas. He is used that medication before. 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 Patient denies any difficulty breathing or swallowing or voice changes Physical Examination: Afebrile vital signs are stable Gen: Well-nourished well-developed Head: Normocephalic atraumatic Eyes: Perrl EOMI ENT: TMs clear no rhinorrhea moist mucous membranes Neck: Supple no lymphadenopathy no JVD nontender CVS: Regular rate rhythm no murmurs normal S1-S2 Respiratory: No distress clear to auscultation bilaterally chest nontender Abdomen: Soft nontender nondistended normal bowel sounds no masses Back: Nontender Extremity: Nontender no edema Skin: Normal color she has significant urticaria of the bilateral hips and thighs. There is also urticaria noted on the arms back posterior auricular area. Neuro: alert orientated ?3 CN II-XII intact normal strength sensation reflexes gait cerebellar Psych: Normal affect normal mood Emergency Department Course and Treatment: Patient will be treated with Benadryl Pepcid and prednisone. This will be continued at home. He is to keep a list of all things he comes in contact with that can potentially new. I have asked that he follow-up with primary care. Impression: 1. Urticaria This note was generated with [employer] dictation software. It may contain incorrect words, spelling, and punctuation that were not noted in review of the chart pr ior to signing ED Disposition - Plan for ED Patient: Disposition: Home or Assisted Living Instructions: Understanding Urticaria (Hives) Prescriptions: DiphenhydrAMINE [Benadryl] 25 mg PO 4X/DAY PRN PRN #20 cap PRN Reason: Itching Prescription Printed Prednisone [Deltasone] 60 mg PO DAILY #12 tab Prescription Printed Famotidine [Pepcid] 20 mg PO BID #6 tab Prescription Printed Referrals: Isis Mcmahon MD [STAFF PHYSICIAN] - 3-5 Days if not improving
[2019-05-28] MEDS: Famotidine 20 MG Tablet 40 MG PO (10:04)
[2019-05-28] MEDS: predniSONE 20 MG Tablet 60 MG PO (10:04)
[2019-05-28] MEDS: DiphenhydrAMINE 25 MG Capsule 50 MG PO (10:04)
== END 2019-05-28 10:25 | disposition home or self-care (01) ==
PROVIDERS: Emergency Provider Emergency Medicine
DX: L50.9 Urticaria, unspecified (principal); Z72.0 Tobacco use
CPT/HCPCS: 99283

== ENCOUNTER 2021-04-24 11:52 | Emergency (ER) | payer MEDICAID, SELFPAY ==
[2021-04-24 11:53] VITALS: BP 122/81; PULSE 87; RESP 16; TEMP 36.9; O2SAT 96; BMI 21.7
[2021-04-24] MEDS: Naproxen 250 MG Tablet 500 MG PO (12:42)
[2021-04-24] MEDS: Clindamycin HCl 150 MG Capsule 300 MG PO (12:42)
[2021-04-24] MEDS: HYDROcodone Bitartrate/Apap 5/325 Tablet PO (12:42)
--- NOTE | 2021-04-24 13:06 | ED.VIS.DENTA ---
HPI History of Present Illness Chief Complaint: Dental Informant: patient Onset/Context/Timing Onset: Days Context: Sudden Onset Timing: Continuous Quality: Pain Location: Upper bicuspid/molars Maximum Severity: Severe Worsened by: Cold Relieved by: - (Nothing) Associated Symptoms Assocated Symptom - Dental: face swelling and cold sensitivity; Negative for fever, jaw swelling or hot sensitivity Narrative Narrative: Patient present because of dental pain. He has poor dentition. He denies fever, chills night sweats. Eyes rheumatic fever, heart murmur mitral valve prolapse. Patient denies skin lesions. He denies antibiotic allergies. Does have a prescription card. Prior similar symptoms: Yes Recent Illness/Hospitalization: No PFSH PFSH Medical History (Updated 04/24/21 @ 13:[address] Obdulio Quinonez MD) Back pain Diarrhea Fatigue Limb weakness Severe headache Home Medications clindamycin HCl [Cleocin HCl] 300 mg PO Q6H #28 capsule 04/24/21 [Rx Last Taken Unknown] hydrocodone-acetaminophen 1 tab PO Q6H PRN PRN 3 Days #10 tablet 04/24/21 [Rx Last Taken Unknown] naproxen 500 mg PO BID #14 tab 04/24/21 [Rx Last Taken Unknown] Allergy/AdvReac Type Severity Reaction Status Date / Time cyproheptadine HCl AdvReac Nausea Verified 04/24/21 11:55 [From Periactin] Surgical History Kidney stones Social History (Updated 04/24/21 @ 13:[address] Obdulio Quinonez MD) household members: spouse Smoking Status: Current every day smoker tobacco type: cigarettes alcohol intake: current alcohol intake frequency: holidays/special occasions only Alcohol type: hard liquor ROS ROS ED Constitutional Constitutional ED: Denies chills, fever(s), subjective, sweats or weight loss Eyes Eyes: Denies blurry vision or change in vision ENT ENT ED: Denies ear pain, rhinorrhea or sore throat Cardiovascular Cardiovascular: Denies chest pain or palpitations Respiratory/Chest Respiratory/Chest: Denies cough, dyspnea or dyspnea on exertion Gastrointestinal Gastrointestinal: Denies nausea or vomiting Hematologic/Lymphatic Hematologic/Lymphatic: Denies easy bleeding or easy bruising Allergic/Immunologic Allergic/Immunologic ED: Reports other Details: Patient with swelling on the right ; Denies mouth swelling, tongue swelling or urticaria EXAM Physical Exam Const Vital Signs: 04/24/21 11:53 Temperature 98.4 F Temperature Source Temporal Pulse Rate 87 Respiratory Rate 16 Blood Pressure 122/81 H Blood Pressure Mean 94 Pulse Ox 96 Oxygen Delivery Method Room Air Positive well nourished and well developed General Appearance ED: well developed; Negative for NAD HEENT Reports TM's clear tenderness Tympanic Membrane ED: Yes TM's clear Mouth ED: Yes oral and palatal mucosa normal, Yes lips normal, Yes tongue normal, Yes salivary gland normal, No mouth trauma, No oral and palatal mucosa abnormal and No salivary gland abnormal Mouth: oral and palatal mucosa normal, lips normal, tongue normal, salivary gland normal, No mouth trauma, No oral and palatal mucosa abnormal and No salivary gland abnormal Teeth and Gingiva: abnormal tooth and associated gingiva, caries, gingiva abnormal, poor dentition and teeth discoloration Throat: posterior oropharynx normal Eyes PERRL and EOMs intact bilaterally General Eye ED: Negative for pale conjunctiva or scleral icterus Neck no lymphadenopathy, supple and no JVD Neck Narrative: Trachea is midline. There is no inspiratory expiratory stridor. General: normal visual inspection Lymph Lymphatic: no lymphadenopathy noted Chest Wall inspection of chest normal Resp normal respiratory effort and clear to auscultation bilaterally Cardio regular rate, regular rhythm, S1 normal heart sound, S2 normal heart sound and no murmurs Neuro oriented x3 and CN's II-XII intact bilaterally Sensorium / Orientation: alert Psych mental status grossly normal Skin no rashes or lesions noted and No no wounds MDM MDM MDM Narrative Medical decision making narrative: Patient has reversible pulpitis with numerous dental caries and dental abscess. He was treated with clindamycin, NSAID and opiate allergies as it has no contraindication. Discharge Plan Triage Chief Complaint: Dental ED Provider: Obdulio Quinonez Dx/Rx/DC Orders Clinical Impression: Abscess, dental, Symptomatic reversible pulpitis, Dental caries into pulp Instructions: ED Dental Abscess Prescriptions: New clindamycin HCl [Cleocin HCl] 300 MG capsule 300 mg PO Q6H Qty: 28 RF: 0 hydrocodone-acetaminophen [hydrocodone-acetaminophen] 1 TABLET tablet 1 tab PO Q6H PRN PRN (Reason: Pain) 3 Days Qty: 10 RF: 0 naproxen 500 MG tablet 500 mg PO BID Qty: 14 RF: 0 Primary Care Provider: Care Physician,No Primary Referrals: Care Physician,No Primary [Primary Care Provider] -
[2021-04-24 13:28] VITALS: BP 134/77; PULSE 62; RESP 15; O2SAT 98
== END 2021-04-24 13:29 | disposition home or self-care (01) ==
LOC: ED 12:35
PROVIDERS: Emergency Provider Emergency Medicine
DX: K04.7 Periapical abscess without sinus (principal); K04.01 Reversible pulpitis; K02.9 Dental caries, unspecified; Z79.1 Long term (current) use of non-steroidal anti-inflammatories (NSAID); F17.210 Nicotine dependence, cigarettes, uncomplicated
CPT/HCPCS: 99283

== ENCOUNTER 2022-02-05 12:24 | Emergency (ER) | payer MEDICAID, SELFPAY ==
[2022-02-05 12:24] VITALS: BP 134/89; PULSE 98; RESP 18; TEMP 36.6; O2SAT 98; BMI 21.7
--- NOTE | 2022-02-05 12:35 | EX.ED.DYSGE1 ---
HPI History of Present Illness Chief Complaint: Shortness of Breath Narrative Narrative: Patient presenting with right rib pain since yesterday. Patient states that Wednesday he felt like he was coming down with something. He had a little bit of rhinorrhea and a little bit of a cough. He did not have fever, chills, body aches. He states he took Tylenol and ibuprofen over the weekend. He went back to work on Wednesday. Today he is present pain. He states is worse with movement and when he takes a deep breath. Its in the right ribs laterally and posteriorly. He denies chest pressure. He is not short of breath. No cardiac history. No history of DVT/PE. No risk factors for DVT/PE. 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 [facility] Medical History (Updated 05/02/21 @ 00:00 by María Velazquez) Back pain Diarrhea Fatigue Limb weakness Severe headache Home Medications clindamycin HCl 300 mg capsule (Cleocin HCl) 300 mg PO Q6H #28 CAPSULES 04/24/21 [Rx Last Taken Unknown] hydrocodone-acetaminophen 5-325mg 5mg-325mg 1 tab PO Q6H PRN PRN Pain 3 days #10 TABLETS 04/24/21 [Rx Last Taken Unknown] naproxen 500 mg tablet 500 mg PO BID #14 tabs 04/24/21 [Rx Last Taken Unknown] lidocaine 5 % topical patch (Lidoderm) 1 patch topical DAILY PRN muscle spasm #15 ea 02/05/22 [Rx Last Taken Unknown] naproxen 500 mg tablet (Naprosyn) 500 mg PO BID PRN pain #20 tabs 02/05/22 [Rx Last Taken Unknown] tizanidine 4 mg capsule (Zanaflex) 4 mg PO Q8H PRN muscle spasticity #20 caps 02/05/22 [Rx Last Taken Unknown] Allergy/AdvReac Type Severity Reaction Status Date / Time cyproheptadine HCl AdvReac Nausea Verified 02/05/22 12:26 [From Periactin] Surgical History Kidney stones Social History (Updated 04/24/21 @ 13:[address] Obdulio Quinonez MD) household members: spouse Smoking Status: Current every day smoker tobacco type: cigarettes alcohol intake: current alcohol intake frequency: holidays/special occasions only Alcohol type: hard liquor ROS ROS ED Constitutional Constitutional ED: Denies chills, fever(s) or sweats Eyes Eyes: Denies blurry vision or change in vision ENT ENT ED: Denies ear pain or sore throat Cardiovascular Cardiovascular: Reports other Details: Right rib pain ; Denies chest pain, palpitations or racing heartbeat Respiratory/Chest Respiratory/Chest: Reports cough; Denies dyspnea or sputum Gastrointestinal Gastrointestinal: Denies abdominal pain, constipation, diarrhea, nausea or vomiting Genitourinary Genitourinary ED: Denies dysuria, hematuria or urinary frequency Musculoskeletal Musculoskeletal: Denies arthralgias, myalgias or neck pain Integumentary Denies abscess, Abrasions or rash Neurologic Neurologic: Denies headache(s), paresthesias or weakness Psychiatric Psychiatric: Denies anxiety, depression, suicidal ideation or suicidal thoughts Endocrine Endocrinology: Denies polydipsia or polyuria EXAM Physical Exam Const Vital Signs: 02/05/22 12:24 02/05/22 12:48 Temperature 98 F Temperature Source Temporal Pulse Rate 98 Respiratory Rate 18 Respiratory Effort Normal Non-Labored Respiratory Depth Normal Respiratory Pattern Normal Blood Pressure 134/89 H Blood Pressure Mean 104 Pulse Ox 98 Oxygen Delivery Method Room Air Room Air Positive well nourished General Appearance ED: Negative for pallor HEENT Reports moist mucous membranes Eyes PERRL and EOMs intact bilaterally Chest Wall Chest Narrative: Tenderness to palpation of the right ribs diffusely in the mid axillary line in the posterior axillary line. There is no crepitance, deformity. Patient has equal symmetric breath sounds or chest wall rise. Resp normal respiratory effort GI normal to inspection, nondistended, normoactive bowel sounds Neuro oriented x3 and CN's II-XII intact bilaterally Sensorium / Orientation: alert Motor Exam: strength 5/5 throughout Skin no rashes or lesions noted General Skin Exam: Negative for jaundice or pallor MDM MDM MDM Narrative Medical decision making narrative: Patient presenting with right rib pain. This started after coughing episodes over the weekend when the patient felt generally unwell. He had no fever, chills. On examination he is tender in the right ribs in the posterior axial line and in the midaxillary line. There is no crepitance. He has equal symmetric breath sounds and chest wall rise. He does state that he is now having some tenderness in right upper chest wall in the pectoralis region. This is all reproducible and worse with motion. I do not believe this is cardiac in nature. Patient also has no risk factors for DVT or PE and is PERC negative. I obtained a right rib series and on my interpretation it shows no acute fractures of the ribs and the lung is well-expanded without any cardiopulmonary abnormalities. Patient was initially treated with [place] and a Lidoderm patch which he states helped. I think at this point he can be discharged home with muscle relaxers and Naprosyn. He was given Lidoderm patches as well. He was offered a work note but declines. He was given primary care follow-up. Return precautions discussed. Impression: 1. Chest wall strain Lab Data Attestation: I reviewed the patient's lab results. Radiography Diagnostic Testing: Clinical Impression(s) from Imaging Studies Ribs w/Chest X-Ray 02/05/22 12:50 IMPRESSION: RIBS: Normal x-ray examination of the ribs. CHEST: Normal x-ray examination of the chest. Electronically Signed: Ubaldo Thompson MD at 13:26 EDT , Discharge Plan Triage Chief Complaint: Shortness of Breath ED Provider: Chin Adamson Dx/Rx/DC Orders Instructions: ED Muscle Spasm Prescriptions: New naproxen [Naprosyn] 500 mg tablet 500 mg PO BID PRN (Reason: pain) Qty: 20 0RF tizanidine [Zanaflex] 4 mg capsule 4 mg PO Q8H PRN (Reason: muscle spasticity) Qty: 20 0RF lidocaine [Lidoderm] 5 % adhesive patch,medicated 1 patch topical DAILY PRN (Reason: muscle spasm) Qty: 15 0RF Rx Instructions: leave on most painful area for up to 12 hrs No Action clindamycin HCl [Cleocin HCl] 300 MG capsule 300 mg PO Q6H Qty: 28 0RF hydrocodone-acetaminophen [hydrocodone-acetaminophen] 1 TABLET tablet 1 tab PO Q6H PRN PRN (Reason: Pain) 3 Days Qty: 10 0RF naproxen 500 MG tablet 500 mg PO BID Qty: 14 0RF Primary Care Provider: Care PhysicianJennifer Primary Referrals: Lyssa Viramontes MD [STAFF PHYSICIAN] - 3-5 Days Care Physician,No Primary [Primary Care Provider] - Disposition Disposition: Home, Self Care
[2022-02-05] MEDS: HYDROcodone Bitartrate/Apap 5/325 Tablet PO (12:44)
[2022-02-05] MEDS: Lidocaine 5% Patch 1 PATCH TOPICAL (12:47)
[2022-02-05 12:48] VITALS: O2SAT 97
--- NOTE | 2022-02-05 12:50 | RAD_ITS ---
STUDY: X-RAY - UNILATERAL RIBS ( RIGHT ) WITH CHEST REASON FOR EXAM: Male, 41 years old. Right-sided chest pain with deep inspiration. TECHNIQUE - RIBS: 4 view(s) of the ribs. TECHNIQUE - CHEST: Single PA view of the chest. COMPARISON: Comparison is made with prior chest radiograph dated 09/29/2018. FINDINGS - RIBS: Normal visualized ribs without a demonstrated fracture. FINDINGS - CHEST: EKG electrodes are seen. The lungs are clear and expanded. There is no demonstrated pleural abnormality. Normal size heart. Normal mediastinum and jimenez. Normal visualized pulmonary arteries. Normal visualized aortic arch and descending thoracic aorta. Normal visualized thoracic spine. Normal visualized ribs, clavicles, and shoulders. There is no demonstrated abnormality of the visualized soft tissue structures of the upper abdomen. RAD/Ribs Uni Min 3V w/PA Chest IMPRESSION: RIBS: Normal x-ray examination of the ribs. CHEST: Normal x-ray examination of the chest. Electronically Signed: Ubaldo Thompson MD at 13:26 EDT ,
== END 2022-02-05 13:47 | disposition home or self-care (01) ==
PROVIDERS: Emergency Provider Student in an Organized Health Care Education/Training Program; Visit Provider Student in an Organized Health Care Education/Training Program
DX: S29.011A Strain of muscle and tendon of front wall of thorax, initial encounter (principal); X58.XXXA Exposure to other specified factors, initial encounter; R06.02 Shortness of breath; J34.89 Other specified disorders of nose and nasal sinuses; F17.210 Nicotine dependence, cigarettes, uncomplicated; Z79.1 Long term (current) use of non-steroidal anti-inflammatories (NSAID)
CPT/HCPCS: 71101; 99283

== ENCOUNTER 2022-03-21 14:16 | Emergency (ER) | payer MEDICAID, SELFPAY ==
[2022-03-21 14:17] VITALS: BP 120/86; PULSE 97; RESP 16; TEMP 36.9; O2SAT 96; BMI 20.5
--- NOTE | 2022-03-21 14:57 | CT_ITS ---
STUDY: CT ABDOMEN AND PELVIS WITHOUT CONTRAST REASON FOR EXAM: Male, 41 years old. Kidney Stone PT ARRIVES TO ED WITH PAINFUL, FOUL SMELLING URINE. HX OF KIDNEY STONES. RADIATION DOSAGE (If Supplied By Facility): CTDIvol = ( 6.04 ) mGy, DLP = ( 297.48 ) mGycm TECHNIQUE: Transaxial images were obtained from the dome of the diaphragm to the symphysis pubis without oral contrast, and without intravenous contrast. Sagittal and coronal images were reconstructed. Individualized dose optimization techniques were used for this CT. COMPARISON: CT of abdomen and pelvis dated June 13, 2016 FINDINGS: The visualized lung bases are unremarkable. The visualized portions of the heart are within normal limits. Normal liver. Normal gallbladder and extrahepatic biliary system. Normal spleen. Normal pancreas. Normal bilateral adrenal glands. A 1 mm calyceal stone is present in upper pole of the right kidney. 2 additional punctate stones are seen in the lower pole of the left kidney, refer to image 73/178 series 2. No hydronephrosis or hydroureter ureter is present. No perinephric stranding or abnormal appearance of the renal parenchyma or calyces is seen to suggest pyelonephritis. Normal visualized stomach. Normal small intestine. Normal colon. The appendix is visualized and appears normal. There is diffuse atherosclerotic calcification of the abdominal aorta, without a demonstrated aneurysm. Normal inferior vena cava. Normal retroperitoneum. Normal urinary bladder. Normal visualized prostate gland. A tiny calcification is present in the central aspect of the prostate gland. Normal abdominal wall. Normal osseous structures. CT/Abdomen/Pelvis without Cont IMPRESSION: 1. Small bilateral nonobstructing kidney stones Electronically Signed: Rob Lundy MD at 15:38 EDT ,
--- NOTE | 2022-03-21 15:02 | EDS_ITS ---
HPI History of Present Illness Chief Complaint: Flank Pain Detail of Chief Complaint: Initially flank pain now complains of colicky suprapubic discomfort and caleb Informant: patient Onset/Context/Timing Onset: Days Context: Sudden Onset Timing: Continuous and Waxes and wanes Quality: Colicky and see HPI narrative Location: Presently suprapubic and testicle Current Severity: Mild Maximum Severity: Severe Worsened by: Urination Relieved by: Nothing Associated Symptoms Associated Symptoms: Nausea, hematuria, urgency Narrative Narrative: Patient is a 41-year-old male with 5 prior stones. He has undergone lithotripsy in the past. He presents with initially acute flank pain that radiated to his groin. Now complains of suprapubic pain that radiates to his groin. He does report hematuria, urgency and pain with urination. He denies penile discharge. He denies scrotal swelling or testicular swelling. He denies fever, chills night sweats. He denies vomiting or diarrhea. He denies trauma. He denies any other symptoms. Prior similar symptoms: Yes (Obstructing ureteral stone) Recent Illness/Hospitalization: No PFSH PFS Medical History (Updated 03/21/22 @ 16:[address] Obdulio Quinonez MD) Back pain Diarrhea Fatigue Limb weakness Severe headache Ureterolithiasis Home Medications doxycycline monohydrate 100 mg capsule 100 mg PO BID #14 CAPSULES 03/21/22 [Rx Last Taken Unknown] phenazopyridine 200 mg tablet (Pyridium) 200 mg PO TID #10 tabs 03/21/22 [Rx Last Taken Unknown] Allergy/AdvReac Type Severity Reaction Status Date / Time cyproheptadine HCl AdvReac Nausea Verified 03/21/22 14:17 [From Periactin] Surgical History Kidney stones Social History household members: spouse Smoking Status: Current every day smoker tobacco type: cigarettes alcohol intake: current alcohol intake frequency: holidays/special occasions only Alcohol type: hard liquor ROS ROS ED Constitutional Constitutional ED: Denies chills, fever(s), subjective, sweats or weight loss Eyes Eyes: Denies blurry vision, change in vision or diplopia ENT ENT ED: Denies ear pain, rhinorrhea or sore throat Cardiovascular Cardiovascular: Denies chest pain, orthopnea, palpitations, paroxysmal nocturnal dyspnea or racing heartbeat Respiratory/Chest Respiratory/Chest: Denies cough, dyspnea, dyspnea on exertion, orthopnea, paroxysmal nocturnal dyspnea or sputum Gastrointestinal Gastrointestinal: Reports abdominal pain and nausea; Denies constipation, diarrhea, melena or vomiting Genitourinary Genitourinary ED: Reports dysuria, hematuria, urinary frequency and other Details: And see HPI Musculoskeletal Musculoskeletal: Reports back pain; Denies arthralgias, myalgias or neck pain Integumentary Denies abscess, Abrasions or rash Neurologic Neurologic: Denies headache(s), paresthesias or weakness Psychiatric Psychiatric: Denies anxiety or depression Hematologic/Lymphatic Hematologic/Lymphatic: Reports systems reviewed and no addt'l complaints, except as documented; Denies easy bleeding or easy bruising EXAM Physical Exam Const Vital Signs: 03/21/22 14:17 Temperature 98.5 F Temperature Source Temporal Pulse Rate 97 Respiratory Rate 16 Blood Pressure 120/86 H Blood Pressure Mean 97 Pulse Ox 96 Oxygen Delivery Method Room Air Positive well nourished and well developed General Appearance ED: well developed; Negative for cyanotic, diaphoretic, NAD or pallor HEENT Reports dry mucous membranes HEENT Narrative: Head is atraumatic no cephalic. Ears normal. Nares patent. Uvula midline. No deviation of protrusion. Posterior pharynx out erythema or exudate. Mouth ED: Yes dry mucous membranes Mouth: dry mucous membranes Eyes PERRL and EOMs intact bilaterally General Eye ED: Negative for pale conjunctiva or scleral icterus Neck no lymphadenopathy, supple and no JVD Chest Wall inspection of chest normal and palpation of chest normal Resp normal respiratory effort and clear to auscultation bilaterally Cardio regular rate, regular rhythm, S1 normal heart sound, S2 normal heart sound and no murmurs GI normal to inspection, nondistended, normoactive bowel sounds, non-distended and no masses; Negative for non-tender or hepatosplenomegaly GI Narrative: Patient has bilateral shotty lymph nodes. There is no evidence of hernia. There is no mass. Narrative: Previously described Back/Spine General Back: CVA tenderness left Cervical Spine: Negative for cervical spine tenderness Thoracic Spine / Upper Back: Negative for thoracic spinal tenderness Lumbar Spine / Lower Back: Negative for lumbar spinal tenderness Extremity normal to inspection General Extremety ED: Negative for edema or tenderness General Extremity: Negative for edema Neuro oriented x3, CN's II-XII intact bilaterally and no sensory deficits noted Sensorium / Orientation: alert Psych mental status grossly normal Skin no rashes or lesions noted, no wounds and skin turgor normal General Skin Exam: Negative for jaundice or pallor MDM MDM MDM Narrative Medical decision making narrative: Patient presents with urologic symptoms. We will need to rule out infectious cause versus obstructing ureteral stone. Patient was medicated with IV Zofran and Toradol. CT of the abdomen pelvis without contrast was ordered. Lab Data Attestation: I reviewed the patient's lab results. Lab results narrative: White count is slightly elevated with no shift. Electrolyte panel is unremarkable. Urine reveals 25-50 RBCs and 50-100 WBCs. There is no bacteria. Macro is positive for occult blood and leukoesterase negative for nitrites. exam was performed. Circumcised male penis out lesion or discharge. Testes center bilaterally no testicular epididymal tenderness. There is no evidence of inguinal hernia. Plan is to send urine for culture as well as GC and chlamydia. Patient was treated with doxycycline and Pyridium. Labs: Laboratory Results - last 24 hr 03/21/22 03/21/22 03/21/22 15:04 15:04 15:04 WBC 11.3 H RBC 5.20 Hgb 16.2 Hct 45.4 MCV 87.3 MCH 31.2 MCHC 35.7 RDW Std Deviation 40.6 RDW Coeff of Tonja 12.6 Plt Count 246 MPV 10.1 Immature Gran % (Auto) 0.300 Neut % (Auto) 62.1 Lymph % (Auto) 30.6 [place] % (Auto) 6.3 Eos % (Auto) 0.3 Baso % (Auto) 0.4 Absolute Neuts (auto) 7.0 Absolute Lymphs (auto) 3.45 Nucleated RBC % 0 Sodium 138 Potassium 3.8 Chloride 104 Carbon Dioxide 28.0 Anion Gap 6 BUN 21 H Creatinine 1.04 Estim Creat Clear Calc 77.06 Est GFR (MDRD) Af Amer 101 Est GFR (MDRD) Non-Af 84 BUN/Creatinine Ratio 20.2 H Glucose 119 H Calcium 9.2 Urine Color Yellow Urine Clarity Sl. Cloudy Urine pH 6.0 Ur Specific [place] 1.020 Urine Protein 30 H Urine Glucose (UA) Normal Urine Ketones Negative Urine Occult Blood 250 H Urine Nitrite Negative Urine Bilirubin Negative Urine Urobilinogen 1 H Ur Leukocyte Esterase 25 H Urine RBC 25-50 SEEN Urine WBC 50-100 SEEN Ur Squamous Epith Cells 5-10 SEEN Urine Bacteria 0 SEEN Urine Mucus 0 SEEN Radiography Diagnostic Testing: Clinical Impression(s) from Imaging Studies Abdomen/Pelvis CT 03/21/22 14:57 IMPRESSION: 1. Small bilateral nonobstructing kidney stones Electronically Signed: Rob Lundy MD at 15:38 EDT Reading Location ID and State: [address] [place] [address] , Service support , Discharge Plan Triage Chief Complaint: Flank Pain ED Provider: Obdulio Quinonez Dx/Rx/DC Orders Clinical Impression: Dysuria, Pyuria, Gross hematuria Prescriptions: New doxycycline monohydrate 100 mg capsule 100 mg PO BID Qty: 14 0RF phenazopyridine [Pyridium] 200 mg tablet 200 mg PO TID Qty: 10 0RF Primary Care Provider: Care Physician,No Primary Referrals: Ignacio Benavides MD [Med Staff - Active Staff] - 5-7 Days Care Physician,No Primary [Primary Care Provider] - Disposition Disposition: Home, Self Care
[2022-03-21 15:10] LABS: Bacteria 0 SEEN /hpf (None Seen); Mucous, Urine 0 SEEN /hpf (<or=2+)
[2022-03-21 15:12] LABS: Absolute Lymphocyte Count 3.45 X10^3/uL (0.83-4.51); Basophil# 0.04 X10^3/uL; Basophil% 0.4 % (0-1); Eosinophil# 0.03 X10^3/uL; Eosinophils% 0.3 % (0-5); Hematocrit 45.4 % (40-54); Hemoglobin 16.2 g/dL (13.0-16.5); Lymphocyte # 3.45 X10^3/ul (0.83-4.51); Lymphocyte % 30.6 % (19-41); Mean Corp Hgb Conc 35.7 g/dL (32-36); Mean Corpuscular Hgb 31.2 pg (27.0-32.0); Mean Corpuscular Volume 87.3 fL (80-94); Mean Platelet Vol. 10.1 fl (6.2-12.0); Monocyte# 0.71 X10^3/uL; Monocyte% 6.3 % (0-10); NRBC Flagged by Analyzer 0 % (0-5); Neutrophil # 7.02 X10^3/uL (2.7-7.7); Neutrophil % 62.1 % (47-70); Platelet Count 246 K/mm3 (150-450); RBC Distribution Width CV 12.6 % (11.6-14.6); RBC Distribution Width SD 40.6 fl (35.1-43.9); White Blood Count 11.3 K/mm3 (4.4-11.0)
[2022-03-21 15:21] LABS: Color, Urine Yellow (Yellow); Glucose, Dipstick Normal (Normal); Ketone-Dipstick Negative (Negative); Leukocyte Esterase-Dipstick 25 /ul (Negative); Nitrite-Dipstick Negative (Negative); Occult Blood-Urine 250 /ul (Negative); Protein-Dipstick 30 mg/dl (Negative); Urine Bilirubin Dipstick Negative (Negative); Urine Clarity Sl. Cloudy (Clear); Urine Urobilinogen 1 mg/dl (Normal)
[2022-03-21] MEDS: Ondansetron 4 MG/2 ML Vial IV (15:21)
[2022-03-21] MEDS: Ketorolac 15 MG/ML Vial IV (15:25)
[2022-03-21] MEDS: 0.9% Normal Saline 1,000 ML 250 ML IV (15:25)
[2022-03-21 15:27] LABS: Squamous Epithelial Cells - UA 5-10 SEEN /hpf (0-5)
[2022-03-21 15:28] LABS: Red Blood Cells-Urine 25-50 SEEN /hpf (0-5); White Blood Cells 50-100 SEEN /hpf (0-5)
[2022-03-21 15:29] LABS: Anion Gap 6 (5-15); BUN 21 mg/dL (7-18); BUN/Creat Ratio 20.2 RATIO (10-20); Calcium,Total 9.2 mg/dL (8.5-10.1); Chloride 104 mmol/L (98-107); Creatinine, Serum 1.04 mg/dL (0.70-1.30); EST Glomerular Filtration Rate 84 mL/min (>60); Est Glom Filt Rate - Afr Amer 101 mL/min (>60); Estimated Creatinine Clearance 77.06 ml/min; Glucose 119 mg/dL (74-106); Potassium 3.8 mmol/L (3.5-5.1); Sodium Level 138 mmol/L (136-145)
[2022-03-21] MEDS: Doxycycline 100 MG CAPSULE PO (16:17)
[2022-03-21 16:20] VITALS: BP 140/78; PULSE 74; RESP 15; O2SAT 99
== END 2022-03-21 16:24 | disposition home or self-care (01) ==
PROVIDERS: Emergency Provider Emergency Medicine; Visit Provider Emergency Medicine
DX: R30.0 Dysuria (principal); R31.0 Gross hematuria; R82.81 Pyuria; R10.2 Pelvic and perineal pain; R11.0 Nausea; F17.210 Nicotine dependence, cigarettes, uncomplicated; R35.0 Frequency of micturition
CPT/HCPCS: 74176; 80048; 81001; 85025; 87086; 87088; 96361; 96374; 96375; 99284; J7030; A4216; J2405

== ENCOUNTER 2022-06-17 14:36 | Emergency (ER) | payer MEDICAID, SELFPAY ==
[2022-06-17 14:38] VITALS: BP 126/111; PULSE 78; RESP 18; TEMP 36.6; O2SAT 97; BMI 20.9
--- NOTE | 2022-06-17 16:36 | EDS_ITS ---
HPI History of Present Illness Chief Complaint: Dental Informant: patient Onset/Context/Timing Onset: Days (4) Context: Gradual Onset Timing: Continuous Quality: Burning, stabbing Location: Left upper premolars and canine Worsened by: Chewing Relieved by: - (Nothing) Associated Symptoms Assocated Symptom - Dental: jaw swelling, face swelling, cold sensitivity and hot sensitivity; Negative for fever Narrative Narrative: Presents with left upper dental pain that has been getting worse over the last 4 days. Patient describes the pain as burning and stabbing. Patient states the pain is over the left upper premolars and canines. Patient states his pain is burning and stabbing. Patient states the pain is worse with any chewing or eating. Patient admits to some swelling of his jaw and face. Patient admits to hot and cold sensitivity. Patient denies any fevers or chills. Patient does admit to a sore throat. Patient states the pain has been giving him a headache which has caused some nausea and vomiting. [facility] Medical History Back pain Diarrhea Fatigue Limb weakness Severe headache Ureterolithiasis Home Medications penicillin V potassium 500 mg tablet 500 mg PO 4X/DAY #40 tabs 06/17/22 [Rx Last Taken Unknown] Allergy/AdvReac Type Severity Reaction Status Date / Time cyproheptadine HCl AdvReac Nausea Verified 06/17/22 14:37 [From Periactin] Surgical History Kidney stones Social History household members: spouse Smoking Status: Current every day smoker tobacco type: cigarettes alcohol intake: current alcohol intake frequency: holidays/special occasions only Alcohol type: hard liquor ROS ROS ED Constitutional Constitutional ED: Denies chills or fever(s) Eyes Eyes: Reports blurry vision right; Denies diplopia ENT ENT ED: Reports sore throat; Denies rhinorrhea Cardiovascular Cardiovascular: Denies chest pain or palpitations Respiratory/Chest Respiratory/Chest: Denies cough or dyspnea Gastrointestinal Gastrointestinal: Reports nausea and vomiting Genitourinary Genitourinary ED: Reports hematuria; Denies dysuria Musculoskeletal Musculoskeletal: Reports back pain; Denies neck pain Integumentary Denies abscess or rash Neurologic Neurologic: Reports headache(s); Denies weakness Allergic/Immunologic Allergic/Immunologic ED: Denies mouth swelling or urticaria EXAM Physical Exam Const Vital Signs: 06/17/22 14:38 Temperature 97.8 F Temperature Source Temporal Pulse Rate 78 Respiratory Rate 18 Blood Pressure 126/111 H Blood Pressure Mean 116 Pulse Ox 97 Oxygen Delivery Method Room Air Positive well nourished and well developed General Appearance ED: well developed and NAD HEENT Face and Sinus: sinuses nontender Mouth ED: Yes tongue normal Mouth: tongue normal Teeth and Gingiva: caries, gingiva abnormal Positive for gingival edema and poor dentition Throat: posterior oropharynx normal Neck supple and no JVD General: normal visual inspection; Negative for anterior neck swelling, tenderness or submandibular swelling Lymph Lymphatic: no lymphadenopathy noted Neuro oriented x3, CN's II-XII intact bilaterally, moves all extremities, no focal motor deficits and no sensory deficits noted Sensorium / Orientation: alert Motor Exam: strength 5/5 throughout Psych mental status grossly normal MDM MDM MDM Narrative Medical decision making narrative: There are multiple dental caries noted. There is some gingival edema of the upper gingiva. There is no evidence of any abscess. Patient was given a dose of Pen-Vee K here. Patient was given a prescription for Pen-Vee K. Patient was instructed to follow-up with a dentist in 3 to 5 days. Patient was instructed return if worse in any way. Patient understood and was agreeable with the plan. All questions were answered. Discharge Plan Triage Chief Complaint: Dental ED Provider: Cristian Lai Dx/Rx/DC Orders Clinical Impression: Infected dental caries Instructions: ED Dental Abscess Prescriptions: New penicillin V potassium 500 mg tablet 500 mg PO 4X/DAY Qty: 40 0RF Primary Care Provider: Care Physician,No Primary Referrals: Nini Wagoner [Non-Staff] - 3-5 Days Care Physician,No Primary [Primary Care Provider] - Disposition Disposition: Home, Self Care
[2022-06-17 16:42] VITALS: PULSE 79; RESP 16; O2SAT 98
[2022-06-17] MEDS: Penicillin Vk 250 MG Tablet 500 MG PO (16:47)
[2022-06-17] MEDS: Naproxen 250 MG Tablet 500 MG PO (16:48)
== END 2022-06-17 16:50 | disposition home or self-care (01) ==
PROVIDERS: Emergency Provider Emergency Medicine; Visit Provider Emergency Medicine
DX: K02.9 Dental caries, unspecified (principal); J02.9 Acute pharyngitis, unspecified; F17.210 Nicotine dependence, cigarettes, uncomplicated
CPT/HCPCS: 99283

== ENCOUNTER 2022-06-28 18:36 | Emergency (ER) | payer MEDICAID, SELFPAY ==
[2022-06-28 18:37] VITALS: BP 148/99; PULSE 109; RESP 18; TEMP 36.6; O2SAT 99; BMI 20.9
--- NOTE | 2022-06-28 18:47 | EDS_ITS ---
HPI History of Present Illness Chief Complaint: Abscess Detail of Chief Complaint: Dental abscess with facial swelling and drainage Informant: patient Onset/Context/Timing Onset: Days Context: Sudden Onset Timing: Continuous Quality: Pain upper teeth Location: Upper teeth predominantly incisors Current Severity: Moderate Maximum Severity: Severe Worsened by: Hot and cold and touch Relieved by: Nothing Associated Symptoms Associated Symptoms: Facial swelling Narrative Narrative: Patient is a 41-year-old male. He denies history rheumatic fever, heart murmur, SBE or IV drug use. Patient states he has attempted to see a dentist. He states normally he will see him for approximately 2 months. He denies subjective or objective fever. He denies chills. He denies ocular or visual symptoms. He denies difficulty opening and closing his mouth completely. He denies difficulty swallowing. He has had no drooling. Patient states he has difficulty eating or drinking anything. He does report increased pain with drinking cold or hot liquids. Prior similar symptoms: Yes Recent Illness/Hospitalization: No PFSH PFSH Medical History Back pain Diarrhea Fatigue Limb weakness Severe headache Ureterolithiasis Home Medications penicillin V potassium 500 mg tablet 500 mg PO 4X/DAY #40 tabs 06/17/22 [Rx Last Taken Unknown] amoxicillin 875 mg-potassium clavulanate 125 mg tablet 875 mg PO Q12H #20 TABLETS 06/28/22 [Rx Last Taken Unknown] hydrocodone-acetaminophen 5-325mg 5mg-325mg 1 tab PO Q6H PRN PRN Pain 3 days #10 TABLETS 06/28/22 [Rx Last Taken Unknown] naproxen 500 mg tablet 500 mg PO BID #14 tabs 06/28/22 [Rx Last Taken Unknown] Allergy/AdvReac Type Severity Reaction Status Date / Time cyproheptadine HCl AdvReac Nausea Verified 06/28/22 18:39 [From Periactin] Surgical History Kidney stones Social History household members: spouse Smoking Status: Current every day smoker tobacco type: cigarettes alcohol intake: current alcohol intake frequency: holidays/special occasions only Alcohol type: hard liquor ROS ROS ED Constitutional Constitutional ED: Denies chills, fever(s), subjective, sweats or weight loss Eyes Eyes: Denies blurry vision, change in vision or diplopia ENT ENT ED: Denies ear pain, rhinorrhea or sore throat Cardiovascular Cardiovascular: Denies chest pain, orthopnea, palpitations, paroxysmal nocturnal dyspnea or racing heartbeat Respiratory/Chest Respiratory/Chest: Denies cough, dyspnea, dyspnea on exertion, orthopnea, paroxysmal nocturnal dyspnea or sputum Gastrointestinal Gastrointestinal: Denies nausea or vomiting Musculoskeletal Musculoskeletal: Denies arthralgias, myalgias or neck pain Integumentary Reports abscess Neurologic Neurologic: Denies headache(s) or paresthesias Hematologic/Lymphatic Hematologic/Lymphatic: Reports systems reviewed and no addt'l complaints, except as documented; Denies anemia, easy bleeding or easy bruising Allergic/Immunologic Allergic/Immunologic ED: Denies mouth swelling or tongue swelling EXAM Physical Exam Const Vital Signs: 06/28/22 18:37 Temperature 97.8 F Temperature Source Temporal Pulse Rate 109 H Respiratory Rate 18 Blood Pressure 148/99 H Blood Pressure Mean 115 Pulse Ox 99 Oxygen Delivery Method Room Air Positive well nourished and well developed General Appearance ED: well developed; Negative for cyanotic, diaphoretic, NAD or pallor HEENT Reports moist mucous membranes HEENT Narrative: Patient has significant dental caries. There is evidence of a apical abscess on the left possibly involving tooth #9 or 10 which has fistulized with drainage noted above tooth #9. There is facial swelling near the medial canthus and nasal fold on the left. There is no fluctuance. There is no evidence of facial cellulitis. There is no abnormality in the left vestibule. There is no t rismus. He also has a possible apical abscess lower right tooth #28. There is no gingival swelling or evidence of fistula. His lower right molars have been extracted. Eyes PERRL and EOMs intact bilaterally General Eye ED: Negative for pale conjunctiva or scleral icterus Neck no lymphadenopathy, supple and no JVD Neck Narrative: Trachea is midline line. There is no inspiratory stridor. There is no dysphonia. Chest Wall inspection of chest normal and palpation of chest normal Resp normal respiratory effort and clear to auscultation bilaterally Cardio regular rhythm, S1 normal heart sound, S2 normal heart sound and no murmurs Rate: tachycardic Extremity normal to inspection General Extremety ED: Negative for edema or tenderness General Extremity: Negative for edema Neuro oriented x3, CN's II-XII intact bilaterally and no sensory deficits noted Sensorium / Orientation: alert Psych mental status grossly normal Skin no rashes or lesions noted, no wounds and skin turgor normal General Skin Exam: Negative for jaundice or pallor MDM MDM MDM Narrative Medical decision making narrative: Patient has symptoms consistent with reversible and irreversible pulpitis. He has significant dental caries. There is evidence of an apical abscess with fist pardeep formation and drainage of purulent material superior to tooth #9. There is no evidence presently of facial cellulitis or Ludewig's angina. Patient was treated with p.o. antibiotics and p.o. analgesics. He was referred to Dr. Holguin since he in all likelihood would need all of his teeth extracted. Discharge Plan Triage Chief Complaint: Abscess Other Complaint: Dental ED Provider: Obdulio Quinonez Dx/Rx/DC Orders Clinical Impression: Apical abscess, Dental fistula, Dental caries extending into pulp, Symptomatic irreversible pulpitis Instructions: Dental Abscess Prescriptions: New hydrocodone-acetaminophen [hydrocodone-acetaminophen] 5-325 mg tablet 1 tab PO Q6H PRN PRN (Reason: Pain) 3 Days Qty: 10 0RF amoxicillin-pot clavulanate [amoxicillin-pot clavulanate] 875-125 mg tablet 875 mg PO Q12H Qty: 20 0RF naproxen 500 mg tablet 500 mg PO BID Qty: 14 0RF No Action penicillin V potassium 500 mg tablet 500 mg PO 4X/DAY Qty: 40 0RF Primary Care Provider: Care Physician,No Primary Referrals: Gaudencio Tanner DDS [Med Staff - Active Staff] - As soon as possible Care Physician,No Primary [Primary Care Provider] - Disposition Disposition: Home, Self Care
[2022-06-28] MEDS: Naproxen 250 MG Tablet 500 MG PO (19:16)
[2022-06-28] MEDS: Amox/Clavulanate 875 MG Tablet PO (19:17)
[2022-06-28] MEDS: HYDROcodone Bitartrate/Apap 5/325 Tablet PO (19:17)
[2022-06-28 19:18] VITALS: BP 148/99; PULSE 109; RESP 15; O2SAT 99
== END 2022-06-28 19:18 | disposition home or self-care (01) ==
LOC: ED 18:55
PROVIDERS: Emergency Provider Emergency Medicine; Visit Provider Emergency Medicine
DX: K02.9 Dental caries, unspecified (principal); K04.7 Periapical abscess without sinus; K04.02 Irreversible pulpitis; F17.210 Nicotine dependence, cigarettes, uncomplicated
CPT/HCPCS: 99283

== ENCOUNTER 2022-11-08 16:32 | Emergency (ER) | payer MEDICAID, SELFPAY ==
[2022-11-08 16:33] VITALS: BP 144/92; PULSE 76; RESP 18; TEMP 36.2; O2SAT 100; BMI 21.7
--- NOTE | 2022-11-08 17:25 | EDS_ITS ---
HPI <KENNY Lopez - Last Filed: 11/08/22 19:13> History of Present Illness Chief Complaint: Dental Narrative Narrative: Presenting today with left sided maxillary dental pain he has had since last night. He states that his dog head butted him and he thinks that he broke a tooth. He has had increased pain to the tooth as well as sensitivity to cold/hot foods. He admits to poor dentition and states he does not currently have a dentist. He decided to take his dogs left over amoxicillin 500 mg tablets and has had 3 since yesterday. He denies any fever and chills. PFSH <KENNY Lopez - Last Filed: 11/08/22 19:13> [facility] Medical History Back pain Diarrhea Fatigue Limb weakness Severe headache Ureterolithiasis Home Medications penicillin V potassium 500 mg tablet 500 mg PO 4X/DAY #40 tabs 06/17/22 [Rx Last Taken Unknown] amoxicillin 875 mg-potassium clavulanate 125 mg tablet 875 mg PO Q12H #20 TABLETS 06/28/22 [Rx Last Taken Unknown] hydrocodone-acetaminophen 5-325mg 5mg-325mg 1 tab PO Q6H PRN PRN Pain 3 days #10 TABLETS 06/28/22 [Rx Last Taken Unknown] naproxen 500 mg tablet 500 mg PO BID #14 tabs 06/28/22 [Rx Last Taken Unknown] naproxen 500 mg tablet (Naprosyn) 500 mg PO BID PRN pain #14 tabs 11/08/22 [Rx Last Taken Unknown] naproxen 500 mg tablet (Naprosyn) 500 mg PO BID PRN pain 7 days #14 tabs 11/08/22 [Rx Last Taken Unknown] penicillin V potassium 500 mg tablet 500 mg PO 4X/DAY #40 tabs 11/08/22 [Rx Last Taken Unknown] penicillin V potassium 500 mg tablet 500 mg PO 4X/DAY 10 days #40 tabs 11/08/22 [Rx Last Taken Unknown] Allergy/AdvReac Type Severity Reaction Status Date / Time cyproheptadine HCl AdvReac Nausea Verified 11/08/22 16:35 [From Periactin] Surgical History Kidney stones Social History household members: spouse Smoking Status: Current every day smoker tobacco type: cigarettes alcohol intake: current alcohol intake frequency: holidays/special occasions only Alcohol type: hard liquor ROS <KNENY Lopez - Last Filed: 11/08/22 19:13> ROS ED Constitutional Constitutional ED: Denies chills or fever(s) Cardiovascular Cardiovascular: Denies chest pain or palpitations Respiratory/Chest Respiratory/Chest: Denies cough or dyspnea Gastrointestinal Gastrointestinal: Denies abdominal pain, nausea or vomiting Musculoskeletal Musculoskeletal: Denies arthralgias or myalgias Integumentary Denies abscess, Abrasions or rash Neurologic Neurologic: Denies weakness Psychiatric Psychiatric: Denies anxiety or depression EXAM <KENNY Lopez - Last Filed: 11/08/22 19:13> Physical Exam Const Vital Signs: 11/08/22 16:33 Temperature 97.1 F L Temperature Source Temporal Pulse Rate 76 Respiratory Rate 18 Blood Pressure 144/92 H Blood Pressure Mean 109 Pulse Ox 100 Oxygen Delivery Method Room Air Positive well nourished, well developed and no apparent distress General Appearance ED: well developed HEENT Reports normocephalic and head/scalp atraumatic HEENT Narrative: Patient has multiple dental caries, gums are inflamed, multiple broken teeth. There is no peritonsillar abscess or area of fluctuance. Mouth ED: Yes moist mucous membranes normal Eyes PERRL and EOMs intact bilaterally Neck full ROM and supple Chest Wall inspection of chest normal Resp normal respiratory effort and clear to auscultation bilaterally Cardio regular rate and regular rhythm GI soft to palpation, non-tender, non-distended and no masses Back/Spine normal ROM and normal to inspection Extremity normal to inspection and full ROM Neuro oriented x3, CN's II-XII intact bilaterally, moves all extremities, no focal motor deficits and no sensory deficits noted Sensorium / Orientation: awake and alert Psych mental status grossly normal and thought process normal Skin no rashes or lesions noted and no wounds <Dr. Per De La Rosa MD - Last Filed: 11/08/22 17:28> Physical Exam Const Vital Signs: 11/08/22 16:33 Temperature 97.1 F L Temperature Source Temporal Pulse Rate 76 Respiratory Rate 18 Blood Pressure 144/92 H Blood Pressure Mean 109 Pulse Ox 100 Oxygen Delivery Method Room Air [facility] <KENNY Lopez - Last Filed: 11/08/22 19:13> [facility] Narrative Medical decision making narrative: Patient presenting today due to dental pain on the left side of his maxillary jaw after his dog head butted him and he thought that he could have broke his tooth. Patient has multiple dental caries as well as multiple broken teeth and overall very poor dentition. I do not see any dental abscess. Patient will be started on penicillin. He is to call his insurance company to find a dentist to follow-up with, we have helped him figure out his insurance carrier. He has been given a prescription for naproxen. He will be discharged home in stable condition and is comfortable with plan. I have personally performed a face to face assessment of the patient and have reviewed the LEONELA Note. I performed a substantive portion of the visit including all aspects of the following. My albright findings include: History is 42-year-old male with very poor dentition from chronic decay and cavities. Was head butted by his pit bull yesterday and fractured the left upper premolar. Planing of pain. He has been taking his dogs antibiotic. No other complaints. Exam is [well-appearing 42-year-old male. Vital signs stable afebrile. HEENT exam no facial swelling. His entire upper dentition on both sides is greatly decayed, cavities, left upper premolar fracture and gingivitis. The lower dentition is in better shape. No facial swelling. No trismus. No Khadar's angina. Neck nontender. No lymphadenopathy. No swelling. Lungs clear. Heart regular rhythm no murmur. Otherwise exam unremarkable.] Medical Decision Making [patient only placed on Pen-Vee K 500 mg 4 times a day for 10 days. We helped him figure out his insurance status. He will call his Medicaid insurance tomorrow and get set up with a dentist. Motrin and Tylenol for pain.] Other additions or changes: [None] <Dr. Per De La Rosa MD - Last Filed: 11/08/22 17:28> [facility] Narrative Medical decision making narrative: I have personally performed a face to face assessment of the patient and have reviewed the LEONELA Note. I performed a substantive portion of the visit including all aspects of the following. My albright findings include: History is 42-year-old male with very poor dentition from chronic decay and cavities. Was head butted by his pit bull yesterday and fractured the left upper premolar. Planing of pain. He has been taking his dogs antibiotic. No other complaints. Exam is [well-appearing 42-year-old male. Vital signs stable afebrile. HEENT exam no facial swelling. His entire upper dentition on both sides is greatly decayed, cavities, left upper premolar fracture and gingivitis. The lower dentition is in better shape. No facial swelling. No trismus. No Khadar's angina. Neck nontender. No lymphadenopathy. No swelling. Lungs clear. Heart regular rhythm no murmur. Otherwise exam unremarkable.] Medical Decision Making [patient only placed on Pen-Vee K 500 mg 4 times a day for 10 days. We helped him figure out his insurance status. He will call his Medicaid insurance tomorrow and get set up with a dentist. Motrin and Tylenol for pain.] Other additions or changes: [None] Discharge Plan Triage Chief Complaint: Dental ED Midlevel Provider: Anahi Yeager ED Provider: Per De La Rosa Dx/Rx/DC Orders Clinical Impression: Pain, dental, Dental caries, Fracture of tooth, Gingivitis Prescriptions: New naproxen [Naprosyn] 500 mg tablet 500 mg PO BID PRN (Reason: pain) 7 Days Qty: 14 0RF penicillin V potassium 500 mg tablet 500 mg PO 4X/DAY 10 Days Qty: 40 0RF penicillin V potassium 500 mg tablet 500 mg PO 4X/DAY Qty: 40 0RF naproxen [Naprosyn] 500 mg tablet 500 mg PO BID PRN (Reason: pain) Qty: 14 0RF No Action penicillin V potassium 500 mg tablet 500 mg PO 4X/DAY Qty: 40 0RF hydrocodone-acetaminophen [hydrocodone-acetaminophen] 5-325 mg tablet 1 tab PO Q6H PRN PRN (Reason: Pain) 3 Days Qty: 10 0RF amoxicillin-pot clavulanate [amoxicillin-pot clavulanate] 875-125 mg tablet 875 mg PO Q12H Qty: 20 0RF naproxen 500 mg tablet 500 mg PO BID Qty: 14 0RF Primary Care Provider: Care Physician,No Primary Referrals: Care Physician,No Primary [Primary Care Provider] - Activity Restrictions/Additional Instructions: Please call your insurance company to see who accepts your insurance and follow- up with a dentist. Disposition Disposition: Home, Self Care Discharge Date/Time: 11/08/22 17:43
== END 2022-11-08 17:43 | disposition home or self-care (01) ==
PROVIDERS: Emergency Provider Emergency Medicine; Visit Provider Emergency Medicine
DX: S02.5XXA Fracture of tooth (traumatic), initial encounter for closed fracture (principal); W54.1XXA Struck by dog, initial encounter; K02.9 Dental caries, unspecified; K05.10 Chronic gingivitis, plaque induced; F17.210 Nicotine dependence, cigarettes, uncomplicated
CPT/HCPCS: 99282

== ENCOUNTER 2023-03-23 12:21 | Emergency (ER) | payer MEDICAID, SELFPAY ==
[2023-03-23 12:24] VITALS: BP 111/57; PULSE 72; RESP 14; TEMP 36.7; O2SAT 98; BMI 20.3
--- NOTE | 2023-03-23 13:25 | CT_ITS ---
STUDY: CT ABDOMEN AND PELVIS WITH CONTRAST REASON FOR EXAM: Male, 42 years old. rlq pain -- IV PO Contrast. History of kidney stones. RADIATION DOSAGE (If Supplied By Facility): CTDIvol = ( 9.22 ) mGy, DLP = ( 252.25 ) mGycm TECHNIQUE: Transaxial images were obtained from the dome of the diaphragm to the symphysis pubis without oral contrast. Oral and amp; IV Gastrografin and amp; 100mL Isovue-300 was administered. Sagittal and coronal images were reconstructed. Individualized dose optimization techniques were used for this CT. COMPARISON: Comparison is made with prior study dated March 21, 2022. FINDINGS: The visualized lung bases are unremarkable. The visualized portions of the heart are within normal limits. Normal liver. Normal gallbladder and extrahepatic biliary system. Normal spleen. Normal pancreas. Normal bilateral adrenal glands. Normal right kidney. Normal left kidney. Normal visualized stomach. Normal small intestine. Normal colon. The appendix is visualized and appears normal. Normal abdominal aorta. Normal inferior vena cava. Normal retroperitoneum. Normal urinary bladder. Normal abdominal wall. Normal osseous structures. CT/Abdomen/Pelvis WITH Contrast IMPRESSION: Normal enhanced CT of the abdomen and pelvis. Electronically Signed: Ubaldo Thompson MD at 15:36 EDT ,
--- NOTE | 2023-03-23 13:25 | ED.VIS.GI ---
HPI HPI - GI History of Present Illness Chief Complaint: Abd Pain Informant: patient Narrative Narrative: Vomiting x2 since morning increasing abdominal pain right side prior to arrival. History of kidney stones or feels different. Denies any abdominal surgeries. Denies urinary symptoms. Denies hematemesis. Bowel movement this morning states was black stools. Colonoscopy 5 to 6 years ago done here reported no acute findings. Prior similar symptoms: No PFSH PFSH Medical History Back pain Diarrhea Fatigue Limb weakness Severe headache Ureterolithiasis Home Medications NK 03/23/23 [History Last Taken Unknown] ondansetron 4 mg disintegrating tablet 4 mg PO Q8H PRN PRN Nausea #10 tabs 03/23/23 [Rx Last Taken Unknown] Allergy/AdvReac Type Severity Reaction Status Date / Time cyproheptadine HCl AdvReac Nausea Verified 11/08/22 16:35 [From Periactin] Family History no significant family his Surgical History Kidney stones Social History household members: spouse Smoking Status: Current every day smoker tobacco type: cigarettes alcohol intake: current alcohol intake frequency: holidays/special occasions only Alcohol type: hard liquor ROS ROS ED Constitutional Constitutional ED: Denies chills, fever(s) or sweats Eyes Eyes: Denies change in vision ENT ENT ED: Denies dysphagia or sore throat Cardiovascular Cardiovascular: Denies chest pain, leg edema, palpitations or racing heartbeat Respiratory/Chest Respiratory/Chest: Denies cough, dyspnea or dyspnea on exertion Gastrointestinal Gastrointestinal: Reports abdominal pain, nausea and vomiting; Denies diarrhea Genitourinary Genitourinary ED: Denies dysuria, hematuria or urinary frequency Musculoskeletal Musculoskeletal: Denies back pain, extremity pain or neck pain Integumentary Denies rash or wounds Neurologic Neurologic: Denies headache(s), paresthesias or weakness EXAM Physical Exam Const Vital Signs: 03/23/23 12:24 Temperature 98.1 F Temperature Source Temporal Pulse Rate 72 Respiratory Rate 14 Blood Pressure 111/57 L Blood Pressure Mean 75 Pulse Ox 98 Oxygen Delivery Method Room Air Positive well nourished and well developed General Appearance ED: well developed and NAD HEENT Reports moist mucous membranes normocephalic and atraumatic Eyes PERRL, EOMs intact bilaterally and conjunctivae normal General Eye ED: Yes normal appearance of both eyes Neck no lymphadenopathy and supple General: Negative for tenderness Chest Wall Chest: Negative for tenderness Resp normal respiratory effort and normal air movement Effort and Inspection: symmetric chest movement; Negative for respiratory distress Cardio regular rate, regular rhythm and no murmurs Peripheral Pulses: pulses 2+ throughout GI normal to inspection, nondistended, normoactive bowel sounds GI Narrative: Tender palpation right mid to lower abdomen. No rash. Negative Flynn's. Palpation: Negative for guarding or rebound tenderness present Back/Spine no CVA tenderness and no thoracic nor lumbar tenderness Extremity normal to inspection General Extremety ED: Negative for edema or tenderness General Extremity: Negative for edema Neuro oriented x3 and no sensory deficits noted Sensorium / Orientation: awake and alert Skin no rashes or lesions noted and no wounds MDM MDM MDM Narrative Medical decision making narrative: Interventions / MDM: Differential diagnosis: Abdominal pain Diagnosis considered but do not suspect: Appendicitis, colitis, kidney stones, CT all negative. My EKG interpretation: N/A Imaging independently reviewed and interpreted by myself: CT abdomen pelvis p.o. IV contrast: No acute process. External documents reviewed: N/A Test considered but not ordered:N/A ED course: Patient tender right side right lower abdomen. Thin male, CT contrast studies obtained. Abdominal labs obtained. Treated morphine Zofran with IV fluids. 1550: CT results negative Labs are all stable urine at 25 leukocytes he is asymptomatic with this. Urine culture sent. Will not treat less positive. Clinically was feeling better tolerating oral fluids. Discussed with patient will monitor symptoms continue oral fluids Zofran as needed. Return precaution discussed. All questions were answered. Re-evaluation: stable Disposition discussed with patient/family/significant other: Patient Case discussed with consulting clinician: N/A This note was generated with [employer] dictation software. It may contain incorrect words, spelling, and punctuation that were not noted in checking the note before signing. Lab Data Attestation: I reviewed the patient's lab results. Labs: Laboratory Results - last 24 hr 03/23/23 03/23/23 12:57 13:30 WBC 7.5 RBC 5.01 Hgb 15.4 Hct 44.8 MCV 89.4 MCH 30.7 MCHC 34.4 RDW Std Deviation 42.6 RDW Coeff of Tonja 13.1 Plt Count 232 MPV 9.9 Immature Gran % (Auto) 0.100 Neut % (Auto) 60.5 Lymph % (Auto) 32.8 [place] % (Auto) 5.9 Eos % (Auto) 0.0 Baso % (Auto) 0.7 Absolute Neuts (auto) 4.5 Absolute Lymphs (auto) 2.46 Nucleated RBC % 0 Sodium 140 Potassium 3.8 Chloride 106 Carbon Dioxide 28.0 Anion Gap 6 BUN 14 Creatinine 0.94 Estim Creat Clear Calc 83.67 Est GFR (MDRD) Af Amer 114 Est GFR (MDRD) Non-Af 94 BUN/Creatinine Ratio 15.0 Glucose 100 Calcium 9.0 Total Bilirubin 0.50 AST 19 ALT 21 Alkaline Phosphatase 82 Total Protein 6.8 Albumin 3.7 Globulin 3.1 Albumin/Globulin Ratio 1.2 Lipase 50 Urine Color Yellow Urine Clarity Clear Urine pH 8.0 Ur Specific [place] 1.010 Urine Protein 30 H Urine Glucose (UA) Normal Urine Ketones 5 H Urine Occult Blood Negative Urine Nitrite Negative Urine Bilirubin Negative Urine Urobilinogen Normal Ur Leukocyte Esterase 25 H Urine RBC 0 SEEN Urine WBC 0 SEEN Ur Squamous Epith Cells 0-5 SEEN Urine Bacteria 0 SEEN Urine Mucus 0 SEEN Radiography Diagnostic Testing: Clinical Impression(s) from Imaging Studies Abdomen/Pelvis CT 03/23/23 13:25 IMPRESSION: Normal enhanced CT of the abdomen and pelvis. Electronically Signed: Ubaldo Thompson MD at 15:36 EDT Reading Location ID and State: [facility] / [place] , Service support , Discharge Plan Triage Chief Complaint: Abd Pain ED Provider: Luis Antonio Mccord Dx/Rx/DC Orders Clinical Impression: Abdominal pain, Vomiting Instructions: Abdominal Pain, ED Vomiting (Adult) Prescriptions: New ondansetron [ondansetron] 4 mg tablet,disintegrating 4 mg PO Q8H PRN PRN (Reason: Nausea) Qty: 10 0RF No Action NK Primary Care Provider: Care Physician,No Primary Referrals: Jay Alejandre DO [Med Staff - Pipeline Dispatcher] - 3-5 Days Care Physician,No Primary [Primary Care Provider] - Activity Restrictions/Additional Instructions: CT scan abdomen pelvis with IV and oral contrast negative. Labs are stable. Monitor for any rash on the abdomen that could be shingles. Take nausea medicine as needed continue oral fluids for hydration. Tylenol or Motrin as needed. Follow-up as an outpatient. Return if any worsening symptoms. Disposition Disposition: Home, Self Care
[2023-03-23 13:31] LABS: Absolute Lymphocyte Count 2.46 X10^3/uL (0.83-4.51); Absolute Neutrophil Count 4.5 X10^3/uL (2.0-7.7); Basophil# 0.05 X10^3/uL; Basophil% 0.7 % (0-1); Hematocrit 44.8 % (40-54); Hemoglobin 15.4 g/dL (13.0-16.5); Lymphocyte # 2.46 X10^3/ul (0.83-4.51); Lymphocyte % 32.8 % (19-41); Mean Corp Hgb Conc 34.4 g/dL (32-36); Mean Corpuscular Hgb 30.7 pg (27.0-32.0); Mean Corpuscular Volume 89.4 fL (80-94); Mean Platelet Vol. 9.9 fl (6.2-12.0); Monocyte# 0.44 X10^3/uL; Monocyte% 5.9 % (0-10); NRBC Flagged by Analyzer 0 % (0-5); Neutrophil # 4.53 X10^3/uL (2.7-7.7); Neutrophil % 60.5 % (47-70); Platelet Count 232 K/mm3 (150-450); RBC Distribution Width CV 13.1 % (11.6-14.6); RBC Distribution Width SD 42.6 fl (35.1-43.9); Red Blood Count 5.01 M/mm3 (4.6-6.2); White Blood Count 7.5 K/mm3 (4.4-11.0)
[2023-03-23] MEDS: Ondansetron 4 MG/2 ML Vial IV (13:36)
[2023-03-23] MEDS: Morphine 4 MG/ML Syringe IV (13:36)
[2023-03-23] MEDS: 0.9% Normal Saline 1,000 ML 1000 ML IV (13:38)
[2023-03-23 13:45] LABS: Bacteria 0 SEEN /hpf (None Seen); Mucous, Urine 0 SEEN /hpf (<or=2+); Red Blood Cells-Urine 0 SEEN /hpf (0-5); White Blood Cells 0 SEEN /hpf (0-5)
[2023-03-23 13:46] LABS: ALB/GLOB Ratio 1.2 RATIO (0.9-2.4); AST(SGOT) 19 U/L (15-37); Alanine Aminotransfer ALT/SGPT 21 U/L (16-61); Albumin, Serum 3.7 g/dL (3.2-5.0); Alkaline Phosphatase 82 U/L (45-117); Anion Gap 6 (5-15); BUN 14 mg/dL (7-18); Chloride 106 mmol/L (98-107); Creatinine, Serum 0.94 mg/dL (0.70-1.30); EST Glomerular Filtration Rate 94 mL/min (>60); Est Glom Filt Rate - Afr Amer 114 mL/min (>60); Estimated Creatinine Clearance 83.67 ml/min; Globulin 3.1 g/dL (2.2-4.2); Glucose 100 mg/dL (74-106); Lipase 50 U/L (13-75); Potassium 3.8 mmol/L (3.5-5.1); Protein, Total 6.8 g/dL (6.4-8.2); Sodium Level 140 mmol/L (136-145)
[2023-03-23 13:48] LABS: Color, Urine Yellow (Yellow); Glucose, Dipstick Normal (Normal); Ketone-Dipstick 5 mg/dl (Negative); Leukocyte Esterase-Dipstick 25 /ul (Negative); Nitrite-Dipstick Negative (Negative); Occult Blood-Urine Negative /ul (Negative); Protein-Dipstick 30 mg/dl (Negative); Urine Bilirubin Dipstick Negative (Negative); Urine Clarity Clear (Clear); Urine Urobilinogen Normal (Normal)
[2023-03-23 13:55] LABS: Squamous Epithelial Cells - UA 0-5 SEEN /hpf (0-5)
[2023-03-23 15:57] VITALS: RESP 16
== END 2023-03-23 15:58 | disposition home or self-care (01) ==
PROVIDERS: Emergency Provider Emergency Medicine; Visit Provider Emergency Medicine
DX: R10.813 Right lower quadrant abdominal tenderness (principal); R11.2 Nausea with vomiting, unspecified; F17.210 Nicotine dependence, cigarettes, uncomplicated
CPT/HCPCS: 74177; 80053; 81001; 82274; 83690; 85025; 87086; 96361; 96374; 96375; 99283; J7030; Q9967; A4216; J2405

== ENCOUNTER 2023-04-21 16:54 | Emergency (ER) | payer MEDICAID, SELFPAY ==
[2023-04-21 16:55] VITALS: BP 145/119; PULSE 95; RESP 16; TEMP 36.5; O2SAT 98; BMI 21.2
--- NOTE | 2023-04-21 17:14 | ED.VIS.DENTA ---
HPI History of Present Illness Chief Complaint: Dental Informant: patient Narrative Narrative: Referred to ED for antibiotics after discussing with his dental office. He is having increasing upper gum pain over the past week. His poor dentition. He finally got an appointment however not till June. Due to symptoms dentist office told come to the ED for antibiotics. He denies fever she has hot and cold sensitivities. No trouble swallowing. PFSH PFSH Medical History Back pain Diarrhea Fatigue Limb weakness Severe headache Ureterolithiasis Home Medications penicillin V potassium 500 mg tablet 500 mg PO 4X/DAY #40 tabs 04/21/23 [Rx Last Taken Unknown] Allergy/AdvReac Type Severity Reaction Status Date / Time cyproheptadine HCl AdvReac Nausea Verified 11/08/22 16:35 [From Periactin] Surgical History Kidney stones Social History household members: spouse Smoking Status: Current every day smoker tobacco type: cigarettes alcohol intake: current alcohol intake frequency: holidays/special occasions only Alcohol type: hard liquor ROS ROS ED Constitutional Constitutional ED: Denies chills, fever(s) or sweats Eyes Eyes: Denies change in vision ENT ENT ED: Reports other Details: Dental pain ; Denies dysphagia or sore throat Cardiovascular Cardiovascular: Denies chest pain, leg edema, palpitations or racing heartbeat Respiratory/Chest Respiratory/Chest: Denies cough, dyspnea or dyspnea on exertion Gastrointestinal Gastrointestinal: Denies abdominal pain, diarrhea, nausea or vomiting Genitourinary Genitourinary ED: Denies dysuria, hematuria or urinary frequency Musculoskeletal Musculoskeletal: Denies back pain, extremity pain or neck pain Integumentary Denies rash or wounds Neurologic Neurologic: Denies headache(s), paresthesias or weakness EXAM Physical Exam Const Vital Signs: 04/21/23 16:55 Temperature 97.7 F L Temperature Source Temporal Pulse Rate 95 Respiratory Rate 16 Blood Pressure 145/119 H Blood Pressure Mean 127 Pulse Ox 98 Oxygen Delivery Method Room Air Positive well nourished and well developed General Appearance ED: well developed and NAD HEENT Reports moist mucous membranes HEENT Narrative: Diffuse dental decay throughout his teeth, sparing his lower incisors, there is no fluctuance or focal abscess. There is some small gingivostomatitis upper gums on the right upper. No active bleeding. No sublingual edema. Airway patent. No trismus. normocephalic and atraumatic Eyes PERRL, EOMs intact bilaterally and conjunctivae normal General Eye ED: Yes normal appearance of both eyes Neck no lymphadenopathy and supple General: Negative for tenderness Chest Wall Chest: Negative for tenderness Resp normal respiratory effort and normal air movement Effort and Inspection: symmetric chest movement; Negative for respiratory distress Cardio regular rate, regular rhythm and no murmurs Peripheral Pulses: pulses 2+ throughout GI normal to inspection, nondistended, normoactive bowel sounds and non-tender Palpation: Negative for guarding or rebound tenderness present Back/Spine no CVA tenderness and no thoracic nor lumbar tenderness Extremity normal to inspection General Extremety ED: Negative for edema or tenderness General Extremity: Negative for edema Neuro oriented x3 and no sensory deficits noted Sensorium / Orientation: awake and alert Skin no rashes or lesions noted and no wounds MDM MDM MDM Narrative Medical decision making narrative: Interventions / MDM: Differential diagnosis: Dental caries Diagnosis considered but do not suspect: No signs of dental abscess, no signs of Khadar's angina My EKG interpretation: N/A Imaging independently reviewed and interpreted by myself: N/A External documents reviewed: N/A Test considered but not ordered:N/A ED course: Nontoxic vital stable diffuse dental caries. He started on penicillin for 10 days. He understands following up with his dentist for definitive treatment. All questions were answered. Re-evaluation: stable Disposition discussed with patient/family/significant other: Patient Case discussed with consulting clinician: N/A This note was generated with [email or web address] dictation software. It may contain incorrect words, spelling, and punctuation that were not noted in checking the note before signing. Discharge Plan Triage Chief Complaint: Dental ED Provider: Luis Antonio Mccord Dx/Rx/DC Orders Clinical Impression: Dental caries Instructions: ED Dental Cavity Prescriptions: New penicillin V potassium 500 mg tablet 500 mg PO 4X/DAY Qty: 40 0RF Primary Care Provider: Care Physician,No Primary Referrals: Care Physician,No Primary [Primary Care Provider] - Activity Restrictions/Additional Instructions: Follow-up with your dental team as an outpatient for definitive treatment. Take antibiotic as prescribed. Disposition Disposition: Home, Self Care
[2023-04-21] MEDS: Penicillin Vk 250 MG Tablet 500 MG PO (17:22)
[2023-04-21 17:24] VITALS: RESP 16
== END 2023-04-21 17:25 | disposition home or self-care (01) ==
LOC: ED 17:20
PROVIDERS: Emergency Provider Emergency Medicine; Visit Provider Emergency Medicine
DX: K02.9 Dental caries, unspecified (principal); F17.210 Nicotine dependence, cigarettes, uncomplicated
CPT/HCPCS: 99283

== ENCOUNTER 2023-08-15 13:04 | Emergency (ER) | payer MEDICAID, SELFPAY ==
[2023-08-15 13:06] VITALS: BP 135/97; PULSE 86; RESP 16; TEMP 35.9; O2SAT 100; BMI 21.9
--- OUTSIDE RECORDS SUMMARY | 2023-08-15 13:21 | XMS RPT_ITS | CCD ---
Author Name Unknown Address [address] [place] [address] Organization [facility] Results Test Name Value Interpretation Reference Range Facil ity Summary Purpose Family History No Family History Records Found Advance Directives No Advanced Directives Records Found Additional Source Comments (unrecognized sect ion and content) No Status Records Found INFORMATION SOURCE (unrecogn ized section and content) FOR RECORDS PERTAINING TO PATIENTS WHO ARE OR HAVE BEEN ENROLLED IN A CHEMICAL DEPENDENCY/SUBSTANCEABUSE PROGRAM, SOME INFORMATION MAY BE OMITTED. This clinical summary was aggregated from multiple sources. Caution should be exercised in using it in the provision of clinical care. This summary normalizes information from multiple sources, and as a consequence, information in this document may materially change the coding, format and clinical context of patient data. In addition, data may be omitted in some cases. CLINICAL DECISIONS SHOULD BE BASED ON THE PRIMARY CLINICAL RECORDS. [facility]. provides no warranty or guarantee of the accuracy or completeness of information in this document.
--- NOTE | 2023-08-15 13:23 | EDS_ITS ---
HPI HPI - GI History of Present Illness Chief Complaint: Back Detail of Chief Complaint: Flank and back pain. Informant: patient Abdominal Pain/Flank Pain Onset: Days Context: Gradual Onset Timing: Intermittent Quality: Aching Location: Left Flank Current Severity: Mild Maximum Severity: Mild Nausea/Vomiting/Emesis GI Symptom: Positive for Nausea; Negative for Vomiting Onset: Today Severity: Mild Diarrhea/Melena/Hematochezia GI Symptom: Negative for Diarrhea, Melena or Hematochezia Associated Symptoms Associated Symptoms: Positive for Urgency; Negative for Dysuria, Frequency or Hematuria Narrative Narrative: 43-year-old male history of kidney stones and prior colitis. States for a week he is felt like his been trying to pass a kidney stone. He has had minimal nausea no vomiting or diarrhea. No constipation. No fever or hematuria. Denies any fever. No gross hematuria. No prior abdominal surgeries. Some urinary urgency. Prior similar symptoms: Yes Recent Illness/Hospitalization: No PFSH PFSH Medical History Back pain Diarrhea Fatigue Limb weakness Severe headache Ureterolithiasis Home Medications penicillin V potassium 500 mg tablet 500 mg PO 4X/DAY #40 tabs 04/21/23 [Rx Last Taken Unknown] Allergy/AdvReac Type Severity Reaction Status Date / Time cyproheptadine HCl AdvReac Nausea Verified 08/15/23 13:06 [From Periactin] Surgical History Kidney stones Social History household members: spouse Smoking Status: Current every day smoker tobacco type: cigarettes alcohol intake: current alcohol intake frequency: holidays/special occasions only Alcohol type: hard liquor ROS ROS ED ROS Narrative Back pain. Lower abdominal pain. Nausea. Review of Systems ROS Unobtainable: Denies due to encephalopathy Constitutional Constitutional ED: Denies chills or fever(s) ENT ENT ED: Denies ear pain Cardiovascular Cardiovascular: Denies chest pain or palpitations Respiratory/Chest Respiratory/Chest: Denies cough or dyspnea Gastrointestinal Gastrointestinal: Denies abdominal pain Genitourinary Genitourinary ED: Denies dysuria, hematuria or LMP (females 10-50) Musculoskeletal Musculoskeletal: Reports back pain; Denies arthralgias, myalgias or neck pain Integumentary Denies abscess Neurologic Neurologic: Denies headache(s) Psychiatric Psychiatric: Denies anxiety Endocrine Endocrinology: Denies polydipsia Allergic/Immunologic Allergic/Immunologic ED: Reports mouth swelling; Denies tongue swelling EXAM Physical Exam Narrative Exam Narrative: Well-appearing 43-year-old male. Vital signs are stable afebrile. HEENT exam unremarkable. Moist with membranes. Neck nontender no lymphadenopathy. No meningismus. Lungs clear to auscultation bilaterally. Heart regular rhythm rate about 85 no murmur. Chest wall and ribs nontender. Abdomen is soft nondistended normal bowel sounds without peritoneal signs. Both the right upper and right lower quadrants are unremarkable. No specific McBurney's point tenderness. No hernia or mass. No obstruction. Back no localizing tenderness from 1 side to the other. Moving all 4 extremities. Calves are nontender without edema or cords. Neurologically is awake and alert with no focal motor deficits. Const Vital Signs: 08/15/23 13:06 Temperature 96.6 F L Temperature Source Temporal Pulse Rate 86 Respiratory Rate 16 Blood Pressure 135/97 H Blood Pressure Mean 109 Pulse Ox 100 Oxygen Delivery Method Room Air Positive well nourished and well developed; Negative for obese, cachectic, contractures or unkempt General Appearance ED: well developed and NAD; Negative for unkempt, cachectic, contractures or pallor Nutritional Appearance: Negative for cachectic or obese HEENT Reports moist mucous membranes; Denies dry mucous membranes normocephalic, atraumatic, trauma and tenderness Mouth ED: No dry mucous membranes Mouth: No dry mucous membranes Eyes PERRL and EOMs intact bilaterally General Eye ED: Negative for pale conjunctiva, scleral icterus or other Neck no lymphadenopathy, supple and no JVD General: Negative for tenderness Carotids: Negative for other Lymph Lymphatic: Negative for other Resp normal respiratory effort and clear to auscultation bilaterally Effort and Inspection: Negative for respiratory distress Auscultation: Negative for rales, rhonchi or wheezes Cardio regular rate, regular rhythm, S1 normal heart sound, S2 normal heart sound and no murmurs Rate: Negative for bradycardia or tachycardic Rhythm: Negative for abnormal rhythm GI non-tender, non-distended and no masses Inspection: Negative for abdominal distention Auscultation: normoactive bowel sounds Palpation: soft; Negative for tender, guarding, rigid, hepatomegaly, splenomegaly, hernia, mass, pulsatile mass or rebound tenderness present Back/Spine no CVA tenderness General Back: Negative for CVA tenderness Cervical Spine: Negative for cervical spine tenderness Thoracic Spine / Upper Back: Negative for thoracic spinal tenderness Lumbar Spine / Lower Back: Negative for lumbar spinal tenderness Coccyx: Negative for other Extremity full ROM General Extremety ED: Negative for edema, tenderness or other findings General Extremity: Negative for edema or other findings Neuro CN's II-XII intact bilaterally and moves all extremities Sensorium / Orientation: alert, oriented to person, oriented to place and oriented to time; Negative for orientation impaired, confused, lethargic or stuporous Motor Exam: strength 5/5 throughout; Negative for general weakness or strength abnormal Psych mental status grossly normal and thought process normal Appearance: Negative for unkempt Attitude: No agitated Mood & Affect: Negative for depressed, anxious or tearful Skin no wounds General Skin Exam: Negative for jaundice or pallor Rashes: no rashes Trauma: Negative for abrasion Nails: Negative for discolored MDM MDM MDM Narrative Medical decision making narrative: 43-year-old male with flank pain. He and I discussed he had multiple CAT scans in the past he does request a CAT scan today because he thinks this is a big stone. We treated with Toradol for pain Zofran for nausea. Screening labs and UA are being obtained along with the CT flank study. I reviewed his prior visits most of the stones he is have are small and in the kidneys themselves. Repeat exam patient is doing well at 2:49 PM. We went over his test results. He has small amount of blood in the urine but no infection his electrolytes and kidney function were unremarkable. His CAT scan showed bilateral renal stones but no signs of acute passed stone or obstruction. He will be discharged home. Motrin and Tylenol for pain. History & Record Review Discussion w/independent historian: Patient Additional record(s) reviewed:: Prior inpatient record, Prior outpatient record, Prior ED visit and Prior labs Lab Data Attestation: I reviewed the patient's lab results. Lab results narrative: Electrolytes show gap of 3. Normal BUN of 10 creatinine 1.1. Glucose 136. UA has 250 occult blood. No nitrates. No white or red cells. No bacteria. CT abdomen without contrast she has bilateral renal calculi but no acute stone or obstruction. Labs: Laboratory Results - last 24 hr 08/15/23 08/15/23 13:28 13:40 Sodium 139 Potassium 4.3 Chloride 109 H Carbon Dioxide 27.0 Anion Gap 3 L BUN 10 Creatinine 1.15 Estim Creat Clear Calc 72.74 Est GFR (MDRD) Af Amer 90 Est GFR (MDRD) Non-Af 74 BUN/Creatinine Ratio 8.7 L Glucose 136 H Calcium 9.5 Urine Color Straw Urine Clarity Clear Urine pH 7.0 Ur Specific [place] 1.005 Urine Protein 15 H Urine Glucose (UA) Normal Urine Ketones Negative Urine Occult Blood 250 H Urine Nitrite Negative Urine Bilirubin Negative Urine Urobilinogen Normal Ur Leukocyte Esterase Negative Urine RBC 0-5 SEEN Urine WBC 0 SEEN Ur Squamous Epith Cells 0 SEEN Urine Bacteria 0 SEEN Urine Mucus 0 SEEN Radiography Diagnostic Testing: Clinical Impression(s) from Imaging Studies Abdomen/Pelvis CT 08/15/23 14:12 IMPRESSION: (NOT LISTED IN ORDER OF SIGNIFICANCE) There are bilateral renal calculi. There is no evidence for an obstruction. There is no hydronephrosis. Other findings as above. Electronically Signed: Jacobo Bell MD at 14:46 EST Reading Location ID and State: [facility] / [place] , Service support , Discharge Plan Triage Chief Complaint: Back ED Provider: Per De La Rosa Dx/Rx/DC Orders Clinical Impression: Acute flank pain, Hematuria, History of kidney stones Instructions: ED Flank Pain, Uncertain Cause Prescriptions: No Action penicillin V potassium 500 mg tablet 500 mg PO 4X/DAY Qty: 40 0RF Primary Care Provider: Care Physician,No Primary Referrals: Rudy Greenberg MD [Med Staff - Clinical Nurse Manager] - As Needed Care Physician,No Primary [Primary Care Provider] - Activity Restrictions/Additional Instructions: Your urine had a small amount of blood in it but no infection. Your electrolytes and kidney function were normal. Your CAT scan showed small stones in each kidney but no stone is actually passing at this time. No obstruction. Motrin and Tylenol for pain. Follow-up with your doctor as needed. Disposition Disposition: Home, Self Care
[2023-08-15] MEDS: Ondansetron 4 MG/2 ML Vial IV (13:31)
[2023-08-15] MEDS: Ketorolac 30 MG/ML Syringe IV (13:31)
[2023-08-15 13:49] LABS: Bacteria 0 SEEN /hpf (None Seen); Mucous, Urine 0 SEEN /hpf (<or=2+); Squamous Epithelial Cells - UA 0 SEEN /hpf (0-5); White Blood Cells 0 SEEN /hpf (0-5)
[2023-08-15 13:57] LABS: Anion Gap 3 (5-15); BUN 10 mg/dL (7-18); BUN/Creat Ratio 8.7 RATIO (10-20); Calcium,Total 9.5 mg/dL (8.5-10.1); Chloride 109 mmol/L (98-107); Creatinine, Serum 1.15 mg/dL (0.70-1.30); EST Glomerular Filtration Rate 74 mL/min (>60); Est Glom Filt Rate - Afr Amer 90 mL/min (>60); Estimated Creatinine Clearance 72.74 ml/min; Glucose 136 mg/dL (74-106); Potassium 4.3 mmol/L (3.5-5.1); Sodium Level 139 mmol/L (136-145)
[2023-08-15 14:06] LABS: Color, Urine Straw (Yellow); Glucose, Dipstick Normal (Normal); Ketone-Dipstick Negative (Negative); Leukocyte Esterase-Dipstick Negative /ul (Negative); Nitrite-Dipstick Negative (Negative); Occult Blood-Urine 250 /ul (Negative); Protein-Dipstick 15 mg/dl (Negative); Specific Gravity, Urine 1.005 (1.002-1.030); Urine Bilirubin Dipstick Negative (Negative); Urine Clarity Clear (Clear); Urine Urobilinogen Normal (Normal)
[2023-08-15 14:12] LABS: Red Blood Cells-Urine 0-5 SEEN /hpf (0-5)
--- NOTE | 2023-08-15 14:12 | CT_ITS ---
STUDY: CT Abdomen And Pelvis W/O Contrast Injection 08/15/2023 2:43 PM REASON FOR EXAM: Male, 43 years old. ABDOMINAL PAIN left flank pain TECHNIQUE: Transaxial images were obtained without oral contrast, and without intravenous contrast. Individualized dose optimization techniques were used for this CT. COMPARISON: 9 FINDINGS: The visualized lung bases are unremarkable. The visualized portions of the heart are within normal limits. Unremarkable liver. Unremarkable gallbladder and extrahepatic biliary system. Unremarkable spleen. Unremarkable pancreas. Unremarkable bilateral adrenal glands. Non obstructive 2 mm right renal parenchymal stones. Non obstructive 2 mm left renal parenchymal stones. Unremarkable visualized stomach. Unremarkable small intestine. Unremarkable colon. The appendix is visualized and appears unremarkable. There are calcifications of the abdominal aorta. This is consistent for atherosclerotic disease. There is no abdominal aortic aneurysm. Unremarkable inferior vena cava. Subcentimeter mesenteric lymph nodes. Unremarkable urinary bladder. Unremarkable abdominal wall. Unremarkable osseous structures. CT/Abdomen/Pelvis without Cont IMPRESSION: (NOT LISTED IN ORDER OF SIGNIFICANCE) There are bilateral renal calculi. There is no evidence for an obstruction. There is no hydronephrosis. Other findings as above. Electronically Signed: Jacobo Bell MD at 14:46 EST ,
[2023-08-15 14:54] VITALS: BP 128/83; PULSE 74; RESP 16; O2SAT 97
== END 2023-08-15 14:59 | disposition home or self-care (01) ==
PROVIDERS: Emergency Provider Emergency Medicine; Visit Provider Emergency Medicine
DX: R10.9 Unspecified abdominal pain (principal); R31.9 Hematuria, unspecified; M54.9 Dorsalgia, unspecified; R11.0 Nausea; F17.210 Nicotine dependence, cigarettes, uncomplicated; Z87.442 Personal history of urinary calculi
CPT/HCPCS: 74176; 80048; 81001; 96374; 96375; 99283; A4216; J2405